=== PATIENT | male | born 1930 | race Caucasian/White ===

== ENCOUNTER 2016-12-20 20:39 | Observation (INO) ==
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
[2016-12-20 21:27] LABS: Basophils % 0.6 %; Eosinophils # 0.2 K/mcL (0.0-0.6); Eosinophils % 3.2 %; Hematocrit 27.6 % (37.5-50.1); Hemoglobin 9.3 g/dL (12.9-16.9); Immature Granulocytes % 1.7 % (0-4); Lymphocytes % 15.4 %; Mean Corpuscular HGB Conc 33.7 g/dL (31.6-35.5); Mean Corpuscular Hemoglobin 38.9 pg (28.0-33.3); Mean Corpuscular Volume 115.5 fL (83.0-100.0); Monocytes # 0.5 K/mcL (0.0-1.3); Monocytes % 7.5 %; Neutrophils # 4.7 K/mcL (1.6-8.9); Platelet Count 89 K/mcL (140-400); Red Blood Count 2.39 M/mcL (4.19-5.50); Red Cell Distribution Width 15.4 % (11.5-14.5); Segmented Neutrophils % 71.6 %
[2016-12-20 21:29] LABS: Macrocytosis Present (Not Present); Platelet Estimate Marked Decrease (Normal)
[2016-12-20 21:41] LABS: Alanine Aminotransferase 19 Units/L (0-55); Albumin 3.3 g/dL (3.5-5.0); Albumin/Globulin Ratio 0.8 (1.1-2.2); Alkaline Phosphatase 186 Units/L (38-126); Aspartate Amino Transferase 30 Units/L (5-34); BUN/Creatinine Ratio 11 (6-26); Bilirubin,Direct 0.2 mg/dL (0.0-0.5); Bilirubin,Indirect 0.3 mg/dL (0.0-1.2); Bilirubin,Total 0.5 mg/dL (0.2-1.2); Blood Urea Nitrogen 35 mg/dL (8-26); Carbon Dioxide 21 mEq/L (19-29); Chloride 105 mEq/L (98-109); Globulin 4.4 g/dL (2.4-3.5); Glucose 151 mg/dL (70-99); Osmolality,Calculated 293 (280-300); Potassium 4.3 mEq/L (3.5-4.5); Sodium 136 mEq/L (136-145); Total Protein 7.7 g/dL (6.0-8.3); eGFR For African Americans 23 (> 60); eGFR For Non-African Americans 19 (> 60)
[2016-12-20 21:42] LABS: Ethanol < 10 mg/dL (0-10)
[2016-12-20 21:50] LABS: Bilirubin,Urine Negative (Negative); Blood,Urine Small (Negative); Clarity,Urine Clear (Clear); Color,Urine Yellow (Yellow); Glucose,Urine (UA) Normal (Normal); Ketones,Urine Negative (Negative); Leukocyte Esterase,Urine Negative (Negative); Nitrite,Urine Negative (Negative); Protein,Urine >=300 mg/dL (Neg-Trace); Specific Gravity,Urine 1.012 (1.010-1.025); Urobilinogen,Urine Normal (Normal)
[2016-12-20 21:51] LABS: Bacteria,Urine Few per hpf (None-Few); Hyaline Casts,Urine None Seen per lpf (None-Few); Squamous Epithelial Cell,Urine Many per lpf (None-Few)
[2016-12-20 21:56] LABS: Amphetamine Screen,Urine Negative ng/mL (Cutoff=1000); Barbiturate Screen,Urine Negative ng/mL (Cutoff=200); Benzodiazepines Screen,Urine Negative ng/mL (Cutoff=200); Cannabinoid Screen,Urine Negative ng/mL (Cutoff = 50); Cocaine Screen,Urine Negative ng/mL (Cutoff= 300); Opiate Screen,Urine Negative ng/mL (Cutoff=300); Phencyclidine Screen,Urine Negative ng/mL (Cutoff=25)
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
[2016-12-20] MEDS ORDERED: Acetaminophen 325 MG TABLET PO PRN (23:55)
[2016-12-20] MEDS ORDERED: Dextrose Gel 15 GM PO PRN ×2 (23:55)
[2016-12-20] MEDS ORDERED: D5% in Water 1,000 ML IV PRN (23:55)
[2016-12-20] MEDS ORDERED: Naloxone 0.4 MG/ML INJ IVP PRN (23:55)
[2016-12-20] MEDS ORDERED: Ondansetron ODT 4 MG TAB.RAPDIS SL PRN (23:55)
[2016-12-20] MEDS ORDERED: *HR* Dextrose 50 % in Water (Syg) 50 ML SYRINGE IVP PRN (23:55)
[2016-12-21] MEDS: Albuterol 2.5 MG/3 ML NEBULIZER IH SCH ×3 (05:40→19:30)
[2016-12-21] MEDS: Insulin LISPRO 300 UNITS/3 ML VIAL SQ SCH ×3 (09:24→17:09)
[2016-12-21] MEDS: Aspirin 81 MG TAB.CHEW PO SCH (09:28)
[2016-12-21] MEDS: amLODIPine 5 MG TABLET PO SCH (09:28)
[2016-12-21] MEDS: Budesonide/Formoterol 160/4.5 MDI IH SCH ×2 (11:17→19:53)
--- NOTE | 2016-12-21 11:45 | Physician Discharge Referral ---
ExtendedCare Referral Info Transfer To: SNF Provider in Charge after Transfer: PCP Institutional Level of Care: Skilled - Diagnosis (1) Dementia Priority: Primary Status: Acute (2) CKD (chronic kidney disease), stage IV Priority: Secondary Status: Chronic (3) Non-insulin dependent type 2 diabetes mellitus Priority: Secondary Status: Chronic Prognosis: Fair Aware of Diagnosis: Family Aware of Prognosis: Family - Transfer Medications Home Medications: Amlodipine [Norvasc] 2.5 mg PO DAILY 08/20/15 [History] Aspirin Enteric Coated [Aspirin EC] 81 mg PO DAILY 08/20/15 [History] Atenolol [Tenormin] 50 mg PO DAILY 08/20/15 [History] Citalopram [CeleXA] 40 mg PO DAILY 08/20/15 [History] Levalbuterol Neb [Xopenex] 1 aerosol IH TID PRN 08/20/15 [History] Losartan [Cozaar] 50 mg PO DAILY 08/20/15 [History] Mirtazapine [Remeron] 15 mg PO HS 08/20/15 [History] Omeprazole [PriLOSEC] 20 mg PO DAILY 08/20/15 [History] Budesonide/Formoterol 160/4.5 [Symbicort] 2 puff IH BIDR #30 inhaler 08/25/15 [ Rx] Docusate Sodium [Colace] 100 mg PO BID PRN #20 capsule 08/25/15 [Rx] Albuterol Neb [Proventil Neb] 3 ml IH TID 04/06/16 [History] Albuterol Sulfate [Proair Hfa] 2 puff IH Q4H PRN 04/06/16 [History] Budesonide Neb [Pulmicort Neb] 2 ml IH DAILY 04/06/16 [History] Formoterol Fumarate [Perforomist] 2 ml IH BID 04/06/16 [History] Ipratropium [place] 1 spr NS Q6-8H PRN 04/06/16 [History] Oxygen 1 each .ROUTE AD 04/06/16 [History] Hydrocodone/Acetaminophen [[place] 5-325 Tablet] 1 tab PO Q6H PRN #10 tab [Rx] Allergies/Adverse Reactions: Allergies Penicillins Allergy (Verified 08/20/15 13:30) Swelling of Lip/Tongue/Throat - Respiratory Orders Smoking Cessation: Smoking cessation has been advised. For more information, call the [place] Tobacco Quit Line at 3-375-CWCP-NOW. CERTIFICATION: I certify that the transfer of the above named patient to an Extended Care Facility is necessary for the continuing treatment of the diagnosis listed. The above information is true and accurate reflection of patient's current condition. Confidential - Redisclosure prohibited without a patient's written consent.
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
--- NOTE | 2016-12-21 18:09 | Electrocardiograph Report ---
[place] [id number] Test Date: 2016-12-20 Pat Name: Milo Saul Department: 104 Room: 3B11 Gender: M Learning And Development Director: : 1930 Requested By: Tracy See Order Number: [id number] Reading MD: Lenora Hopper Measurements Intervals [place] Rate: 88 P: 51 SC: 250 QRS: -25 QRSD: 137 T: 29 QT: 372 QTc: 417 Interpretive Statements SINUS RHYTHM WITH FIRST DEGREE AV BLOCK BORDERLINE LEFT AXIS DEVIATION RIGHT BUNDLE BRANCH BLOCK Electronically Signed On 12-21-2016 18:07:47 EST by Lenora Hopper
[2016-12-21] MEDS ORDERED: Insulin LISPRO 300 UNITS/3 ML VIAL SQ SCH (21:00)
[2016-12-22] MEDS: Albuterol 2.5 MG/3 ML NEBULIZER IH SCH ×2 (01:01→07:53)
[2016-12-22] MEDS: Budesonide/Formoterol 160/4.5 MDI IH SCH (07:53)
[2016-12-22] MEDS: Insulin LISPRO 300 UNITS/3 ML VIAL SQ SCH (08:53)
--- NOTE | 2016-12-22 09:42 | Discharge Summary ---
Date of Encounter: 12/22/16 Time of Encounter: 09:10 - Discharge Diagnosis (1) Dementia Priority: Primary Status: Chronic Qualifiers: Dementia type: unspecified type Dementia behavioral disturbance: without behavioral disturbance Qualified Code(s): F03.90 - Unspecified dementia without behavioral disturbance (2) CKD (chronic kidney disease), stage IV Priority: Secondary Status: Chronic (3) Non-insulin dependent type 2 diabetes mellitus Priority: Secondary Status: Chronic - Discharge Medications Home Medications: Amlodipine [Norvasc] 2.5 mg PO DAILY 08/20/15 [History] Atenolol [Tenormin] 50 mg PO DAILY 08/20/15 [History] Citalopram [CeleXA] 40 mg PO DAILY 08/20/15 [History] Levalbuterol Neb [Xopenex] 1 aerosol IH TID PRN 08/20/15 [History] Losartan [Cozaar] 50 mg PO DAILY 08/20/15 [History] Mirtazapine [Remeron] 15 mg PO HS 08/20/15 [History] Omeprazole [PriLOSEC] 20 mg PO DAILY 08/20/15 [History] Budesonide/Formoterol 160/4.5 [Symbicort] 2 puff IH BIDR #30 inhaler 08/25/15 [ Rx] Docusate Sodium [Colace] 100 mg PO BID PRN #20 capsule 08/25/15 [Rx] Albuterol Neb [Proventil Neb] 3 ml IH TID 04/06/16 [History] Albuterol Sulfate [Proair Hfa] 2 puff IH Q4H PRN 04/06/16 [History] Budesonide Neb [Pulmicort Neb] 2 ml IH DAILY 04/06/16 [History] Formoterol Fumarate [Perforomist] 2 ml IH BID 04/06/16 [History] Ipratropium [place] 1 spr NS Q6-8H PRN 04/06/16 [History] Oxygen 1 each .ROUTE AD 04/06/16 [History] Hydrocodone/Acetaminophen [[place] 5-325 Tablet] 1 tab PO Q6H PRN #10 tab [Rx] Aspirin 81 mg PO DAILY 12/21/16 [History] Cholecalciferol (D-3) [Vitamin D] 5,000 unit PO DAILY 12/21/16 [History] Allergies/Adverse Reactions: Allergies Penicillins Allergy (Verified 08/20/15 13:30) Swelling of Lip/Tongue/Throat Date of admission: 12/20/16 22:46 Primary care physician: Alok Kumar MD Consults: 12/20/16 23:56 Consult to Test Conductor [CONS] Routine Reason for SW Consult: needs placement back to [place] Discharging clinician: Ángel Ballard Anticipated date of discharge: 12/22/16 - Patient Status Disposition: Transfer SNF Condition: Fair Functional capacity at discharge: independent ambulation Overall status at discharge: patient is back to baseline - Discharge Instructions Follow Up With: Alok Kumar MD [Primary Care Provider] - - Diet and Activity Activity: resume usual activities as tolerated Diet: diabetic diet, low salt diet Interval History: See below Hospital course: 86 Y/O M Placed on observation for management of severe dementia with risk of harm to self and others, patient found to be driving an unregistered car and without a license and a resident of [place] Patient also has PMH of HTN, CKD IV, COPD, DM He is seen at bedside, ambulatory, no distress Denies new complains at this time Preoccupied with going home and meeting his Alert, oriented to person and place, disoriented in time, other physical exam otherwise unremarkable Labs on exam reveal chronic anemia and renal function at baseline. Patient is stable to return to SNF for continued care - Time Spent with Patient Total time spent providing and/or coordinating discharge services: - Constitutional Vitals: Temp Pulse Resp BP Pulse Ox 97.4 F L 63 15 159/67 95 12/22/16 07:57 12/22/16 07:57 12/22/16 07:57 12/22/16 07:57 12/22/16 07:57 General appearance: Present: cooperative, A&O X 2 (unsure of year), pleasant, no acute distress, answers questions appropriately - Head Head exam: Present: atraumatic, normocephalic - Eye Eye exam: Present: PERRL, conjuntiva pink, sclera anicteric Pupils: Present: PERRL - Neck Neck exam general surgery: Present: supple, trachea midline. Absent: lymphadenopathy - Respiratory Respiratory exam: Present: CTAB. Absent: accessory muscle use, rales, rhonchi, wheezes - Cardiovascular Cardiovascular exam: Present: RRR, +S1, +S2. Absent: diastolic murmur, gallop, rubs, systolic murmur - GI/Abdominal GI/Abdominal exam: Present: normal bowel sounds, soft, no peritoneal signs. Absent: distended, tenderness - Extremities Exam Extremities exam: Present: warm, radial pulses palpable and symetrical. Absent : calf tenderness, cyanotic, pedal edema - Neurological Exam Neurological exam: Present: CN II-XII intact, oriented X3, no focal deficits. Absent: pronater drift, facial droop, speech deficit - Skin Skin exam: Present: dry, intact - VTE Reasons for not Prescribing Prophylaxis: Treatment not Indicated - Low risk for VTE
[2016-12-22] MEDS: amLODIPine 5 MG TABLET PO SCH (09:55)
[2016-12-22] MEDS: Aspirin 81 MG TAB.CHEW PO SCH (09:55)
[2016-12-22 11:03] VITALS: BP 144/62
== END 2016-12-22 12:56 ==
LOC: EMEROO 20:39 → 3BNU 20:39 → SUATTDRO 22:46 → 3BNU 23:17
PROVIDERS: ADMIT Family Medicine; ATTEND Internal Medicine

== ENCOUNTER 2017-01-03 19:24 | Inpatient (IN) ==
[2017-01-03] MEDS ORDERED: methylPREDNISolone 125 MG/2 ML VIAL IV ONE (19:44)
--- NOTE | 2017-01-03 19:45 | Emergency Department Note ---
Disposition Clinical Impression: Hospital-acquired pneumonia COPD (chronic obstructive pulmonary disease) Qualifiers: COPD type: chronic bronchitis Chronic bronchitis type: simple Qualified Code(s) : J41.0 - Simple chronic bronchitis Congestive heart failure Qualifiers: Congestive heart failure type: unspecified congestive heart failure type Congestive heart failure chronicity: unspecified congestive heart failure chronicity Qualified Code(s): I50.9 - Heart failure, unspecified Disposition: Admitted As Inpatient Referrals: NO,PCP [Non-Partnered Physician] - Forms: ED Satisfaction Letter SOB HPI - General Chief Complaint: ED Shortness of Breath/Dyspnea Stated Complaint: KAMALA Time Seen by Provider: 01/03/17 19:31 Source: patient, EMS Limitations: altered mental status (History of dementia) Nursing Notes Reviewed: Yes Vital Signs Reviewed: Yes - History of Present Illness Pt Subjective Complaint: shortness of breath Onset (ago): day(s) (1) Context: recent illness Severity: moderate Consistency/Duration: constant, gradually worsening Improves with: oxygen, bronchodilators Worsens with: exertion Known history of: COPD Associated symptoms: Reports: wheezing Treatment prior to arrival: oxygen, bronchodilator Cough present: Yes Cough Description: Involuntary Cough Frequency: Intermittent Sputum production: Yes Sputum Amount: Scant - Related Data Home Medications Medication Instructions Recorded Confirmed Atenolol [Tenormin] 50 mg PO DAILY 08/20/15 01/03/17 Citalopram [CeleXA] 20 mg PO DAILY 08/20/15 01/03/17 Losartan [Cozaar] 50 mg PO DAILY 08/20/15 01/03/17 Mirtazapine [Remeron] 15 mg PO HS 08/20/15 01/03/17 Omeprazole [PriLOSEC] 20 mg PO DAILY 08/20/15 01/03/17 Albuterol Neb [Proventil Neb] 3 ml IH Q6H PRN 04/06/16 01/03/17 Albuterol Sulfate [Proair Hfa] 2 puff IH Q4H PRN 04/06/16 01/03/17 Formoterol Fumarate [Perforomist] 2 ml IH BID 04/06/16 01/03/17 Oxygen 2 l NS AD 04/06/16 01/03/17 Amlodipine Besylate 2.5 mg PO DAILY 01/03/17 01/03/17 Aspirin Enteric Coated [Aspirin EC] 81 mg PO DAILY 01/03/17 01/03/17 Budesonide Neb [Pulmicort Neb] 1 mg IH DAILY 01/03/17 01/03/17 Docusate Sodium [Colace] 100 mg PO BID 01/03/17 01/03/17 Hydrocodone/Acetaminophen [[place] 1 tab PO Q6H PRN 01/03/17 01/03/17 5-325 Tablet] TraZODone 25 mg PO HS PRN 01/03/17 01/03/17 Allergies Allergy/AdvReac Type Severity Reaction Status Date / Time Penicillins Allergy Swelling Verified 08/20/15 13:30 of Lip/Tongue/Throat All systems ED: reviewed and negative except as stated. Constitutional: Denies: fever, chills Respiratory: Reports: cough, dyspnea, wheezes Past Medical History - Past Medical History Source: patient, old records reviewed, obtained from family (prison records), nursing notes reviewed Medical history: Reports: arthritis, cancer, COPD, CVA, diabetes, GERD, hyperlipidemia, hypertension, renal disease, other Surgical history: Reports: cancer surgery, carotid endarterectomy, cataract, cholecystectomy, knee replacement, prostatectomy, other Psychiatric history: Reports: depression - Social History Smoking Status: Current every day smoker Smokeless Tobacco Status: No Alcohol use: Reports: none Drug use: Reports: none Physical Exam - General Limitations: altered mental status (Dementia) General appearance: alert, other (Patient is to Mild respiratory distress) - Eye Eye exam: Present: normal appearance, PERRL, EOMI - ENT ENT exam: normal exam, normal oropharynx, mucous membranes moist - Neck Neck exam: Present: normal inspection, full ROM, trachea midline - Chest Chest inspection: Present: normal inspection, symmetric chest wall rise - Respiratory Respiratory exam: Present: respiratory distress, wheezes (Diffuse scattered), accessory muscle use, prolonged expiratory phase - Cardiovascular Cardiovascular exam: Present: tachycardia, normal heart sounds - Abdominal Exam Abdominal exam: Present: soft, Non-Tender. Absent: tenderness, distention, guarding, rebound, rigidity Course - Reevaluation(s) Reevaluation #1: Patient reports marked improvement of symptoms Time: 22:15 Vital Signs Temperature 98.1 F 01/03/17 19:26 Pulse Rate 96 01/03/17 19:26 Respiratory Rate 38 01/03/17 19:26 Blood Pressure 169/75 01/03/17 19:26 O2 Sat by Pulse Oximetry 99 01/03/17 19:26 Temperature 99.1 F 01/03/17 19:39 Pulse Rate 91 01/03/17 20:37 Respiratory Rate 26 01/03/17 20:37 Blood Pressure 140/64 01/03/17 20:37 O2 Sat by Pulse Oximetry 93 L 01/03/17 20:37 Oxygen Delivery Oxygen Delivery Nasal Cannula Shortness of Breath/Dyspnea - Lab Data Result diagrams: 01/03/17 19:56 01/03/17 19:56 Lab Results 01/03/17 01/03/17 01/03/17 Range/Units 19:56 19:56 19:56 WBC 17.2 H (4.3-11.1) K/mcL RBC 2.13 L (4.19-5.50) M/mcL Hgb 8.5 L (12.9-16.9) g/dL Hct 25.7 L (37.5-50.1) % MCV 120.7 H (83.0-100.0) fL MCH 39.9 H (28.0-33.3) pg MCHC 33.1 (31.6-35.5) g/dL RDW 16.0 H (11.5-14.5) % Plt Count 92 L (140-400) K/mcL MPV 13.0 H (9.4-12.4) fL Seg Neutrophils % 80.0 % Lymphocytes % 10.0 % Monocytes % 10.0 % Neutrophils # 13.8 H (1.6-8.9) K/mcL Lymphocytes # 1.7 (0.6-4.6) K/mcL Monocytes # 1.7 H (0.0-1.3) K/mcL Nucleated RBCs/100 WBC 0.1 H (0) /100 WBC Platelet Estimate Decreased L (Normal) Large Platelets Present A (Not Present) Immature Plt Fraction 19.6 H (1.1-6.1) % Macrocytosis Present A (Not Present) PT 12.7 H (9.4-12.1) Seconds INR 1.2 APTT 30.7 (26.0-36.0) Seconds ABG pH (7.32-7.45) pH Units ABG pCO2 (35-45) mmHg ABG pO2 (85-104) mmHg ABG HCO3 (21-27) mEQ/L ABG Total CO2 (20-26) mEq/L ABG O2 Saturation (95-98) % ABG Base Excess (-2.0 to 3.0) mEq/L Blood Gas Modality Inspired O2 % Sodium (136-145) mEq/L Potassium (3.5-4.5) mEq/L Chloride (98-109) mEq/L Carbon Dioxide (19-29) mEq/L BUN (8-26) mg/dL Creatinine (0.72-1.25) mg/dL Est GFR ( Amer) (> 60) Est GFR (Non-Af Amer) (> 60) BUN/Creatinine Ratio (6-26) Glucose (70-99) mg/dL Calculated Osmolality (280-300) Lactic Acid (0.5-2.2) mmol/L Calcium (8.6-10.8) mg/dL Phosphorus (2.3-4.7) mg/dL Magnesium (1.6-2.6) mg/dL Total Bilirubin (0.2-1.2) mg/dL Direct Bilirubin (0.0-0.5) mg/dL Indirect Bilirubin (0.0-1.2) mg/dL AST (5-34) Units/L ALT (0-55) Units/L Alkaline Phosphatase (38-126) Units/L Troponin I (0-0.03) ng/mL B-Natriuretic Peptide 2687 H (0-100) pg/mL Serum Total Protein (6.0-8.3) g/dL Albumin (3.5-5.0) g/dL Globulin (2.4-3.5) g/dL Albumin/Globulin Ratio (1.1-2.2) 01/03/17 01/03/17 01/03/17 Range/Units 19:56 19:56 19:56 WBC (4.3-11.1) K/mcL RBC (4.19-5.50) M/mcL Hgb (12.9-16.9) g/dL Hct (37.5-50.1) % MCV (83.0-100.0) fL MCH (28.0-33.3) pg MCHC (31.6-35.5) g/dL RDW (11.5-14.5) % Plt Count (140-400) K/mcL MPV (9.4-12.4) fL Seg Neutrophils % % Lymphocytes % % Monocytes % % Neutrophils # (1.6-8.9) K/mcL Lymphocytes # (0.6-4.6) K/mcL Monocytes # (0.0-1.3) K/mcL Nucleated RBCs/100 WBC (0) /100 WBC Platelet Estimate (Normal) Large Platelets (Not Present) Immature Plt Fraction (1.1-6.1) % Macrocytosis (Not Present) PT (9.4-12.1) Seconds INR APTT (26.0-36.0) Seconds ABG pH (7.32-7.45) pH Units ABG pCO2 (35-45) mmHg ABG pO2 (85-104) mmHg ABG HCO3 (21-27) mEQ/L ABG Total CO2 (20-26) mEq/L ABG O2 Saturation (95-98) % ABG Base Excess (-2.0 to 3.0) mEq/L Blood Gas Modality Inspired O2 % Sodium 137 (136-145) mEq/L Potassium 5.0 H (3.5-4.5) mEq/L Chloride 107 (98-109) mEq/L Carbon Dioxide 20 (19-29) mEq/L BUN 49 H (8-26) mg/dL Creatinine 3.77 H (0.72-1.25) mg/dL Est GFR ( Amer) 19 L (> 60) Est GFR (Non-Af Amer) 15 L (> 60) BUN/Creatinine Ratio 13 (6-26) Glucose 185 H (70-99) mg/dL Calculated Osmolality 302 H (280-300) Lactic Acid 1.0 (0.5-2.2) mmol/L Calcium 8.7 (8.6-10.8) mg/dL Phosphorus 4.8 H (2.3-4.7) mg/dL Magnesium 2.0 (1.6-2.6) mg/dL Total Bilirubin 0.7 (0.2-1.2) mg/dL Direct Bilirubin 0.4 (0.0-0.5) mg/dL Indirect Bilirubin 0.3 (0.0-1.2) mg/dL AST 43 H (5-34) Units/L ALT 38 (0-55) Units/L Alkaline Phosphatase 206 H (38-126) Units/L Troponin I 0.16 H* (0-0.03) ng/mL B-Natriuretic Peptide (0-100) pg/mL Serum Total Protein 7.7 (6.0-8.3) g/dL Albumin 2.7 L (3.5-5.0) g/dL Globulin 5.0 H (2.4-3.5) g/dL Albumin/Globulin Ratio 0.5 L (1.1-2.2) 01/03/17 Range/Units 21:38 WBC (4.3-11.1) K/mcL RBC (4.19-5.50) M/mcL Hgb (12.9-16.9) g/dL Hct (37.5-50.1) % MCV (83.0-100.0) fL MCH (28.0-33.3) pg MCHC (31.6-35.5) g/dL RDW (11.5-14.5) % Plt Count (140-400) K/mcL MPV (9.4-12.4) fL Seg Neutrophils % % Lymphocytes % % Monocytes % % Neutrophils # (1.6-8.9) K/mcL Lymphocytes # (0.6-4.6) K/mcL Monocytes # (0.0-1.3) K/mcL Nucleated RBCs/100 WBC (0) /100 WBC Platelet Estimate (Normal) Large Platelets (Not Present) Immature Plt Fraction (1.1-6.1) % Macrocytosis (Not Present) PT (9.4-12.1) Seconds INR APTT (26.0-36.0) Seconds ABG pH 7.36 (7.32-7.45) pH Units ABG pCO2 39 (35-45) mmHg ABG pO2 63 L (85-104) mmHg ABG HCO3 22.0 (21-27) mEQ/L ABG Total CO2 23.2 (20-26) mEq/L ABG O2 Saturation 91 L (95-98) % ABG Base Excess -3.2 L (-2.0 to 3.0) mEq/L Blood Gas Modality [place] Inspired O2 44 % Sodium (136-145) mEq/L Potassium (3.5-4.5) mEq/L Chloride (98-109) mEq/L Carbon Dioxide (19-29) mEq/L BUN (8-26) mg/dL Creatinine (0.72-1.25) mg/dL Est GFR ( Amer) (> 60) Est GFR (Non-Af Amer) (> 60) BUN/Creatinine Ratio (6-26) Glucose (70-99) mg/dL Calculated Osmolality (280-300) Lactic Acid (0.5-2.2) mmol/L Calcium (8.6-10.8) mg/dL Phosphorus (2.3-4.7) mg/dL Magnesium (1.6-2.6) mg/dL Total Bilirubin (0.2-1.2) mg/dL Direct Bilirubin (0.0-0.5) mg/dL Indirect Bilirubin (0.0-1.2) mg/dL AST (5-34) Units/L ALT (0-55) Units/L Alkaline Phosphatase (38-126) Units/L Troponin I (0-0.03) ng/mL B-Natriuretic Peptide (0-100) pg/mL Serum Total Protein (6.0-8.3) g/dL Albumin (3.5-5.0) g/dL Globulin (2.4-3.5) g/dL Albumin/Globulin Ratio (1.1-2.2)
[2017-01-03 20:05] LABS: Hemoglobin 8.5 g/dL (12.9-16.9)
[2017-01-03 20:07] LABS: Hematocrit 25.7 % (37.5-50.1); Immature Platelets 19.6 % (1.1-6.1); Mean Corpuscular HGB Conc 33.1 g/dL (31.6-35.5); Mean Corpuscular Hemoglobin 39.9 pg (28.0-33.3); Mean Corpuscular Volume 120.7 fL (83.0-100.0); Nucleated Red Blood Cells 0.1 /100 WBC (0); Red Blood Count 2.13 M/mcL (4.19-5.50)
[2017-01-03 20:12] LABS: Platelet Count 92 K/mcL (140-400)
[2017-01-03 20:14] LABS: Activated Partial Thrombo Time 30.7 Seconds (26.0-36.0)
[2017-01-03 20:20] LABS: Albumin 2.7 g/dL (3.5-5.0); Albumin/Globulin Ratio 0.5 (1.1-2.2); Bilirubin,Direct 0.4 mg/dL (0.0-0.5); Bilirubin,Indirect 0.3 mg/dL (0.0-1.2); Bilirubin,Total 0.7 mg/dL (0.2-1.2); Calcium 8.7 mg/dL (8.6-10.8); Phosphorous 4.8 mg/dL (2.3-4.7); Total Protein 7.7 g/dL (6.0-8.3)
[2017-01-03 20:23] LABS: Lymphocytes # 1.7 K/mcL (0.6-4.6); Monocytes # 1.7 K/mcL (0.0-1.3); Neutrophils # 13.8 K/mcL (1.6-8.9)
[2017-01-03 20:24] LABS: Large Platelets Present (Not Present); Macrocytosis Present (Not Present); Platelet Estimate Decreased (Normal)
[2017-01-03 20:37] LABS: INR 1.2; Prothrombin Time 12.7 Seconds (9.4-12.1)
[2017-01-03] MEDS ORDERED: 0.9 % Sodium Chloride 1,000 ML IVC ONE (21:02)
[2017-01-03] MEDS ORDERED: Aspirin 81 MG TAB.CHEW PO STA (21:03)
[2017-01-03] MEDS ORDERED: Piperacillin/Tazobactam 3.375 GM in D5% in Water (Mini-Bag+) 100 ML IVPB STA (21:03)
[2017-01-03 21:44] LABS: ABG Base Excess -3.2 mEq/L (-2.0 to 3.0); ABG Oxygen Saturation 91 % (95-98); ABG PCO2 39 mmHg (35-45); ABG PH 7.36 pH Units (7.32-7.45); ABG PO2 63 mmHg (85-104); ABG TCO2 23.2 mEq/L (20-26); Blood Gas FiO2 44 %
[2017-01-03] MEDS ORDERED: Acetaminophen 325 MG TABLET PO PRN (22:24)
[2017-01-03] MEDS ORDERED: Naloxone 0.4 MG/ML INJ IVP PRN (22:24)
[2017-01-03] MEDS ORDERED: Levofloxacin 750 MG/150 ML 750 MG/150 ML BAG IVPB ONE (23:39)
[2017-01-03] MEDS ORDERED: traZODone 50 MG TABLET PO PRN (23:40)
[2017-01-03] MEDS ORDERED: *HR* HYDROcodone/Acet 5/325 mg TABLET PO PRN (23:40)
[2017-01-03] MEDS ORDERED: Ipratropium/Albuterol Neb 3 ML IH PRN (23:43)
[2017-01-03] MEDS ORDERED: Vancomycin 1,000 MG in D5% in Water 250 ML IVPB SCH (23:45)
[2017-01-03] MEDS ORDERED: 0.9 % Sodium Chloride 1,000 ML IVC SCH (23:45)
--- NOTE | 2017-01-03 23:48 | Internal Med History&Physical ---
Date of Encounter: 01/03/17 Time of Encounter: 23:15 Assessment and Plan (1) Pneumonia Current visit: Yes Status: Suspected Admitting patient. IV antibiotics. Patient was in the hospital for at least 2 nights. [facility] resident. High risk for complications. Broad-spectrum antibiotics. Qualifiers: Pneumonia type: due to methicillin-resistant Staphylococcus aureus (MRSA) Laterality: right Lung location: upper lobe of lung Qualified Code(s): J15.212 - Pneumonia due to Methicillin resistant Staphylococcus aureus (2) Hospital-acquired pneumonia Current visit: Yes Status: Acute (3) COPD (chronic obstructive pulmonary disease) Current visit: Yes Status: Acute Will treat with IV antibiotics, O2 supplementation along with bronchodilator nebs Qualifiers: COPD type: chronic bronchitis Chronic bronchitis type: simple Qualified Code(s): J41.0 - Simple chronic bronchitis (4) [id number] kidney injury Current visit: Yes Status: Acute Gentle hydration. Follow urine output. Will dose medications renally. (5) CKD (chronic kidney disease), stage IV Current visit: Yes Status: Chronic (6) Dementia Current visit: No Status: Chronic At risk for delirium. Qualifiers: Dementia type: unspecified type Dementia behavioral disturbance: without behavioral disturbance Qualified Code(s): F03.90 - Unspecified dementia without behavioral disturbance (7) Diabetes Current visit: Yes Status: Chronic Sliding-scale insulin. Monitor blood sugars closely. Qualifiers: Diabetes mellitus type: type 2 Diabetes mellitus complication status: with kidney complications Diabetes mellitus complication detail: with chronic kidney disease Diabetes mellitus assisted insulin use: without assisted use Chronic kidney disease stage: stage 4 (severe) Qualified Code(s): E11.22 - Type 2 diabetes mellitus with diabetic chronic kidney disease; N18.4 - Chronic kidney disease, stage 4 (severe) (8) Acute on chronic respiratory failure with hypoxia Current visit: Yes Status: Acute Due to pneumonia and COPD. Continue O2 supplementation and the FiO2 as tolerated. Internal Medicine - H&P: HPI Chief complaint: Shortness of breath and hypoxia Admitted From: Emergency Dept Plans for Post Hospital Care: Transfer Halfway Facility History of present illness: Mr. Saul is a 86 year old male with history of COPD, diabetes, CVA, hypertension and hyperlipidemia presented to the ER from [facility] with shortness of breath and hypoxia that began today. Patient is on chronic home oxygen at 2 L/m. He resides at a [facility] and appears to be having underlying dementia. He is not able to provide much history. History has been obtained through review of ED records. Here, the patient was having severe wheezing and was hypoxic. He was recently given bronchodilator and nebulizer treatments and IV steroids with improvement in his symptoms. He presently denies any chest pain. He feels better now and does not report any cough or sputum production. ED records report that he does have intermittent cough with scant sputum production. No palpitations. Past Med Surg Social Fam HX - Past Medical History Medical history: arthritis, cancer, COPD, CVA, diabetes, GERD, hyperlipidemia, hypertension, renal disease, other Psychiatric history: depression - Past Surgical History Surgical History: cancer surgery, carotid endarterectomy, cataract, cholecystectomy, knee replacement, prostatectomy, other - Social History Smoking Status: Current every day smoker Smokeless Tobacco Status: No Alcohol use: none Drug use: none - Family History Father Hx Family Cardiac Disorders: No Hx Family Cancer: Yes (lung/ prostate) Mother Hx Family Cardiac Disorders: Yes Internal Medicine - H&P: Meds Atenolol [Tenormin] 50 mg PO DAILY 08/20/15 [History] Citalopram [CeleXA] 20 mg PO DAILY 08/20/15 [History] Losartan [Cozaar] 50 mg PO DAILY 08/20/15 [History] Mirtazapine [Remeron] 15 mg PO HS 08/20/15 [History] Omeprazole [PriLOSEC] 20 mg PO DAILY 08/20/15 [History] Albuterol Neb [Proventil Neb] 3 ml IH Q6H PRN 04/06/16 [History] Albuterol Sulfate [Proair Hfa] 2 puff IH Q4H PRN 04/06/16 [History] Formoterol Fumarate [Perforomist] 2 ml IH BID 04/06/16 [History] Oxygen 2 l NS AD 04/06/16 [History] Amlodipine Besylate 2.5 mg PO DAILY 01/03/17 [History] Aspirin Enteric Coated [Aspirin EC] 81 mg PO DAILY 01/03/17 [History] Budesonide Neb [Pulmicort Neb] 1 mg IH DAILY 01/03/17 [History] Docusate Sodium [Colace] 100 mg PO BID 01/03/17 [History] Hydrocodone/Acetaminophen [[place] 5-325 Tablet] 1 tab PO Q6H PRN 01/03/17 [ History] TraZODone 25 mg PO HS PRN 01/03/17 [History] Allergies Penicillins Allergy (Verified 08/20/15 13:30) Swelling of Lip/Tongue/Throat All Systems PM: A 10-system review of systems was performed and is negative for pertinent findings except as documented above in the HPI. Review of systems: Obtained from patient but unreliable due to underlying history of dementia. - Constitutional Constitutional: malaise, no chills, no fever(s), no night sweats - EENT Eyes: no change in vision, no discharge, no pain, no photophobia Ears: no ear discharge, no ear pain, no tinnitus Nose, mouth and throat: no dysphagia, no nasal discharge, no neck pain, no sore throat - Cardiovascular Cardiovascular ROS IM: no chest pain, no diaphoresis, no dyspnea, no lightheadedness, no palpitations, no syncope - Respiratory Respiratory: cough, dyspnea, wheezing, no excessive phlegm production - Gastrointestinal Gastrointestinal: no abdominal pain, no diarrhea, no hematemesis, no hematochezia, no melena, no nausea, no vomiting - Musculoskeletal Musculoskeletal ROS IM: no numbness, no tingling - Integumentary Integumentary IM: no rash, no unusual bruising - Neurological Neurological ROS: no confusion, no convulsions, no focal weakness, no numbness, no tingling, no tremor(s) - Hematologic/Lymphatic Hematologic/Lymphatic: no easy bruising - Constitutional Vitals: Temp Pulse Resp BP Pulse Ox 97.9 F 73 16 138/62 95 01/03/17 23:09 01/03/17 23:09 01/03/17 23:09 01/03/17 23:09 01/03/17 23:09 General appearance: Present: cooperative, A&O X 1, mild distress, answers questions appropriately - Head Head exam: Present: atraumatic, normocephalic - Eye Eye exam: Present: EOMI, PERRL, conjuntiva pink, sclera anicteric - ENT ENT exam: Present: mucous membranes dry - Neck Neck exam general surgery: Present: supple, trachea midline. Absent: lymphadenopathy - Respiratory Respiratory exam: Present: prolonged expiratory phase, wheezes. Absent: accessory muscle use, rales, rhonchi Additional comments: Coarse breath sounds at bases bilaterally - Cardiovascular Cardiovascular exam: Present: RRR, +S1, +S2. Absent: diastolic murmur, gallop, rubs, systolic murmur - GI/Abdominal GI/Abdominal exam: Present: normal bowel sounds, soft, no peritoneal signs. Absent: distended, tenderness - Extremities Exam Extremities exam: Present: warm, radial pulses palpable and symetrical. Absent : calf tenderness, cyanotic, pedal edema - Neurological Exam Neurological exam: Present: alert, no focal deficits. Absent: facial droop, speech deficit - Skin Skin exam: Present: dry, intact Internal Med - H&P Results - Labs CBC & Chem 7: 01/03/17 19:56 01/03/17 19:56 - Impressions Impressions Chest X-Ray 01/03/17 21:05 IMPRESSION: Findings as above likely related to edema or infection. D/ / Kitty Valentin MD / Kitty Valentin MD Interpreting Provider: Kitty Valentin MD - Attending Attestation This document has been at least partially created by [employer] recognition technology by Dr. Robison. Errors in grammar, wording or other phrases may exist. If errors are found after the documentation is signed, they will be addressed individually in the addendum section of this document when appropriate.
[2017-01-04 00:05] LABS: Bilirubin,Urine Negative (Negative); Blood,Urine Trace (Negative); Clarity,Urine Cloudy (Clear); Color,Urine Yellow (Yellow); Glucose,Urine (UA) Normal (Normal); Ketones,Urine Negative (Negative); Leukocyte Esterase,Urine Negative (Negative); Nitrite,Urine Negative (Negative); Protein,Urine >=300 mg/dL (Neg-Trace); Urobilinogen,Urine Normal (Normal)
[2017-01-04 00:23] LABS: Amorphous Sediment,Urine Few (Few); RBC,Urine 0-3 per hpf (0-3); Squamous Epithelial Cell,Urine Few per lpf (None-Few); WBC,Urine 0-3 per hpf (0-3)
[2017-01-04 00:24] LABS: Bacteria,Urine Few per hpf (None-Few)
[2017-01-04] MEDS: Ipratropium/Albuterol Neb 3 ML IH SCH ×6 (01:05→20:37)
[2017-01-04] MEDS: Cefepime HCl 2,000 MG in D5% in Water (Mini-Bag+) 100 ML IVPB SCH ×2 (01:23→09:49)
[2017-01-04] MEDS: methylPREDNISolone 125 MG/2 ML VIAL IVP SCH ×3 (01:24→17:49)
[2017-01-04] MEDS: Nicotine 21 MG PATCH.TD24 TD SCH ×2 (01:25→09:50)
[2017-01-04] MEDS ORDERED: Vancomycin 1,500 MG in D5% in Water 250 ML IVPB ONE (02:00)
[2017-01-04 07:04] LABS: Red Blood Count 1.76 M/mcL (4.19-5.50); Red Cell Distribution Width 15.8 % (11.5-14.5)
[2017-01-04 07:06] LABS: Basophils % 0.2 %; Lymphocytes # 0.3 K/mcL (0.6-4.6); Lymphocytes % 4.6 %; Mean Corpuscular HGB Conc 33.3 g/dL (31.6-35.5); Mean Corpuscular Hemoglobin 39.8 pg (28.0-33.3); Mean Corpuscular Volume 119.3 fL (83.0-100.0); Mean Platelet Volume 13.7 fL (9.4-12.4); Monocytes # 0.1 K/mcL (0.0-1.3); Monocytes % 1.6 %; Segmented Neutrophils % 89.6 %
[2017-01-04 07:35] LABS: Neutrophils # 5.6 K/mcL (1.6-8.9); Platelet Count 64 K/mcL (140-400)
[2017-01-04 07:38] LABS: Macrocytosis Present (Not Present); Platelet Estimate Decreased (Normal)
[2017-01-04] MEDS: Budesonide Neb 0.5 MG/2 ML IH SCH (07:46)
[2017-01-04] MEDS ORDERED: amLODIPine 5 MG TABLET PO SCH ×2 (09:00→14:44)
[2017-01-04] MEDS ORDERED: Aspirin Enteric Coated 81 MG Tablet PO SCH (09:00)
[2017-01-04] MEDS: FORMOTEROL FUMARATE IH SCH ×2 (09:51→22:03)
[2017-01-04] MEDS ORDERED: *HR* Dextrose 50 % in Water (Syg) 50 ML SYRINGE IVP PRN (13:03)
[2017-01-04] MEDS ORDERED: D5% in Water 1,000 ML IV PRN (13:03)
[2017-01-04] MEDS ORDERED: Dextrose Gel 15 GM PO PRN ×2 (13:03)
--- NOTE | 2017-01-04 13:38 | Cardiology Consult Note ---
Date of Encounter: 01/04/17 Time of Encounter: 13:45 Assessment and Plan (1) Acute on chronic respiratory failure with hypoxia Current Visit: Yes Status: Acute Per Cardiology: Being treated for pneumonia and COPD. Management per primary service. On steroids and antibiotics. (2) Dementia Current Visit: No Status: Chronic Per Cardiology: History dementia. 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 No family present at bedside. Qualifiers: Dementia type: unspecified type Dementia behavioral disturbance: without behavioral disturbance Qualified Code(s): F03.90 - Unspecified dementia without behavioral disturbance (3) CKD (chronic kidney disease), stage IV Current Visit: Yes Status: Chronic Per Cardiology: Has apparent history of CKD stage IV, current kidney function appears worse than baseline. We'll discontinue ARB. Will increase Norvasc for BP optimization. Consider nephrology consult if deemed appropriate. (4) Elevated troponin Current Visit: Yes Status: Acute Per Cardiology: Patient denies any chest pain. ECG with ST depressions. Non-STEMI versus demand ischemia. Cardiac rehabilitation consult not appropriate at this time. Troponins 0.16 and 0.32 in setting of apparent MIMI on CKD stage IV, COPD, pneumonia, and severe anemia. Echo currently pending per primary service. Previous echo January 2012 showed EF preserved at 60%, mild AR, mild MR, mild TR. Upon review of records no known history of CAD. We'll discontinue aspirin for now due to severe anemia and thrombocytopenia. On beta blayne. Again, stopping ARB due to worsening kidney function. Appears to be full code, consider palliative care consult to address code status. (5) Anemia Current Visit: Yes Status: Acute Per Cardiology: H&H currently 7 and 21. Patient denies any active bleeding, however poor historian. Occult stool negative. Recommend GI evaluation. Again holding aspirin for now. Qualifiers: Anemia type: unspecified type Qualified Code(s): D64.9 - Anemia, unspecified (6) Elevated brain natriuretic peptide (BNP) level Current Visit: Yes Status: Acute Per Cardiology: Euvolemic on exam. BNP in 2600's. MIMI on CKD IV. Stict I&O, daily weights, 1500ml fluid restriction. Discussion w patient/family: Thank you for involving us in the care of your patient. Please call with any questions. History of Present Illness Consult date: 01/04/17 Requesting physician: Lennox Maldonado Consult reason: Troponin Elevation, SOB Chief complaint: "I don't know. I had SOB and here I am." History of present illness: Mr. Saul is a 86 year old male with a relevant past medical history of hypertension, hyperlipidemia, CVA, DM type II, GERD, COPD, history of prostate cancer status post radical prostatectomy, peripheral artery disease with left CEA, history of tuberculosis, dementia. Cardiology consult today for troponin elevation. No recent cardiology records available. Patient seen today with no family currently present at bedside. Patient is alert to person and knew he was in [place], however was unsure of the year and does not know why he is here today. When asked why he came to the hospital he indicated "I do not know". He reports "I was short of breath and here I am". He denies any chest pain or palpitations. Reports short of breath improved currently. When asked if he's had a recent falls he reports "not lately". Of note has security ankle bracelet from [facility]. Additionally, patient reports he lives home with his , however upon discussion with nursing staff he is from a [facility]. Past Med Surg Social Fam HX - Past Medical History Attestation: Yes The following information was validated with the patient. Source: patient, old records reviewed, nursing notes reviewed Medical history: arthritis, cancer, COPD, CVA, diabetes, GERD, hyperlipidemia, hypertension, renal disease, other Psychiatric history: depression - Past Surgical History Surgical History: cancer surgery, carotid endarterectomy, cataract, cholecystectomy, knee replacement, prostatectomy, other - Social History Smoking Status: Current every day smoker Smokeless Tobacco Status: No Alcohol use: none Drug use: none - Family History Father Hx Family Cardiac Disorders: No Hx Family Cancer: Yes (lung/ prostate) Mother Hx Family Cardiac Disorders: Yes Medications and Allergies Atenolol [Tenormin] 50 mg PO DAILY 08/20/15 [History] Citalopram [CeleXA] 20 mg PO DAILY 08/20/15 [History] Losartan [Cozaar] 50 mg PO DAILY 08/20/15 [History] Mirtazapine [Remeron] 15 mg PO HS 08/20/15 [History] Omeprazole [PriLOSEC] 20 mg PO DAILY 08/20/15 [History] Albuterol Neb [Proventil Neb] 3 ml IH Q6H PRN 04/06/16 [History] Albuterol Sulfate [Proair Hfa] 2 puff IH Q4H PRN 04/06/16 [History] Formoterol Fumarate [Perforomist] 2 ml IH BID 04/06/16 [History] Oxygen 2 l NS AD 04/06/16 [History] Amlodipine Besylate 2.5 mg PO DAILY 01/03/17 [History] Aspirin Enteric Coated [Aspirin EC] 81 mg PO DAILY 01/03/17 [History] Budesonide Neb [Pulmicort Neb] 1 mg IH DAILY 01/03/17 [History] Docusate Sodium [Colace] 100 mg PO BID 01/03/17 [History] Hydrocodone/Acetaminophen [[place] 5-325 Tablet] 1 tab PO Q6H PRN 01/03/17 [ History] TraZODone 25 mg PO HS PRN 01/03/17 [History] Allergies Penicillins Allergy (Verified 08/20/15 13:30) Swelling of Lip/Tongue/Throat ROS unobtainable: other (Patient with history of dementia and history somewhat challenging to obtain, no family present at bedside) All Systems Review: A 10-system review of systems was performed and is negative for pertinent findings except as documented above in the HPI. - Cardiovascular Cardiovascular: as per HPI, dyspnea on exertion Physical Examination Vital Signs, Last 4 Hours Temp Pulse Resp BP Pulse Ox 01/04/17 11:18 98.3 F 63 18 135/60 95 General: Conversant, No Apparent Distress HEENT: Atraumatic, Normocephaly Cardiac: Reg Rate and Rhythm, Normal S1 and S2, No Murmur Lungs: Normal Breath Sounds, Other (decreased to bases) Neuro: Alert and responsive, Other (Alert to person, cooperative and follows simple verbal commands, +DICKINSON 4) Skin: No rashes noted on visualized skin Extremities: No Edema Results 01/04/17 06:39 01/04/17 06:39 Lab Results Laboratory Tests 10/07/16 10/07/16 12/20/16 09:18 09:18 21:21 Hgb 9.3 L 9.3 L Hct 27.5 L 27.6 L Plt Count INR Creatinine 3.05 H AST ALT Troponin I B-Natriuretic Peptide Stool Occult Blood 12/20/16 01/03/17 01/03/17 21:21 19:56 19:56 Hgb 8.5 L Hct 25.7 L Plt Count 92 L INR Creatinine 3.13 H AST ALT Troponin I B-Natriuretic Peptide 2687 H Stool Occult Blood 01/03/17 01/03/17 01/03/17 19:56 19:56 19:56 Hgb Hct Plt Count INR 1.2 Creatinine 3.77 H AST 43 H ALT 38 Troponin I 0.16 H* B-Natriuretic Peptide Stool Occult Blood 01/04/17 01/04/17 01/04/17 06:39 06:39 09:18 Hgb 7.0 L D Hct 21.0 L Plt Count 64 L INR Creatinine 3.40 H AST ALT Troponin I 0.32 H* B-Natriuretic Peptide Stool Occult Blood 01/04/17 10:18 Hgb Hct Plt Count INR Creatinine AST ALT Troponin I B-Natriuretic Peptide Stool Occult Blood Negative ITS Impressions Chest X-Ray 01/03/17 21:05 IMPRESSION: Findings as above likely related to edema or infection. D/ / Kitty Valentin MD / Kitty Valentin MD Interpreting Provider: Kitty Valentin MD Intake & Output 01/01/17 01/02/17 01/03/17 01/04/17 23:59 23:59 23:59 23:59 Intake Total 700 / 700 Output Total 380 / 380 Balance 320 / 320 Weight 72.5 kg 72.5 kg Active Medications Acetaminophen (Tylenol) 650 mg PO Q6HR PRN PRN Reason: Mild Pain (1-3) Stop: 07/05/17 22:25 Acetaminophen/Hydrocodone Bitart ([place] 5-325 Mg) 1 tab PO Q6H PRN PRN Reason: moderate to severe pain Stop: 07/05/17 23:41 Albuterol/Ipratropium (Duoneb) 3 ml IH [id number] [facility] PRN Reason: Protocol Stop: 07/06/17 00:01 Last Admin: 01/04/17 11:00 Dose: 3 ml Amlodipine Besylate (Norvasc) 2.5 mg PO DAILY [facility] Stop: 07/06/17 09:01 Last Admin: 01/04/17 09:50 Dose: 2.5 mg Aspirin (Aspirin Ec) 81 mg PO DAILY [facility] Stop: 07/06/17 09:01 Last Admin: 01/04/17 09:50 Dose: 81 mg Atenolol (Tenormin) 50 mg PO DAILY [facility] Stop: 07/06/17 09:01 Last Admin: 01/04/17 09:50 Dose: 50 mg Budesonide (Pulmicort Neb) 1 mg IH DAILY [facility] Stop: 07/06/17 09:01 Last Admin: 01/04/17 07:46 Dose: 1 mg Citalopram Hydrobromide (Celexa) 20 mg PO DAILY [facility] Stop: 07/06/17 09:01 Last Admin: 01/04/17 09:51 Dose: 20 mg Dextrose/Water (Dextrose 50% (Syg)) 25 ml IVP AD PRN PRN Reason: Hypoglycemia Stop: 07/06/17 13:04 Docusate Sodium (Colace) 100 mg PO BID [facility] PRN Reason: Protocol Stop: 07/06/17 09:01 Last Admin: 01/04/17 09:51 Dose: 100 mg Glucagon (Glucagen) 1 mg IM ONCE PRN PRN Reason: Hypoglycemia Stop: 07/06/17 13:04 Glucose (Gluctose) 15 gm PO ONCE PRN PRN Reason: Hypoglycemia Stop: 07/06/17 13:04 Glucose (Gluctose) 30 gm PO ONCE PRN PRN Reason: Hypoglycemia Stop: 07/06/17 13:04 Cefepime HCl 2,000 mg/ (Dextrose) 100 mls @ 200 mls/hr IVPB DAILY [facility] Stop: 07/05/17 23:46 Last Admin: 01/04/17 09:49 Dose: 200 mls/hr Sodium Chloride (0.9 % Sodium Chloride) 1,000 mls @ 75 mls/hr IVC .[id number] [facility] Stop: 07/05/17 23:46 Last Admin: 01/04/17 01:23 Dose: 75 mls/hr Dextrose (Dextrose 5%) 1,000 mls @ 100 mls/hr IV CONT PRN PRN Reason: HYPOGLYCEMIA Stop: 07/06/17 13:04 Insulin Human Lispro (Humalog) 0 units SQ TIDAC [facility] PRN Reason: Protocol Stop: 07/06/17 13:16 Insulin Human Lispro (Humalog) 0 units SQ HS [facility] PRN Reason: Protocol Stop: 07/06/17 21:01 Losartan Potassium (Cozaar) 50 mg PO DAILY [facility] PRN Reason: Protocol Stop: 07/06/17 09:01 Last Admin: 01/04/17 09:51 Dose: 50 mg Methylprednisolone (Solu-Medrol) 80 mg IVP Q8HR [facility] Stop: 07/06/17 00:01 Last Admin: 01/04/17 09:48 Dose: 80 mg Mirtazapine (Remeron) 15 mg PO HS [facility] Stop: 07/06/17 21:01 Naloxone HCl (Narcan) 0.4 mg IVP Q2MIN PRN PRN Reason: Opioid Reversal Stop: 07/05/17 22:25 Nicotine (Nicoderm) 21 mg TD DAILY [facility] PRN Reason: Protocol Stop: 07/06/17 00:46 Last Admin: 01/04/17 09:50 Dose: 21 mg Omeprazole (Prilosec) 20 mg PO DAILY [facility] PRN Reason: Protocol Stop: 07/06/17 09:01 Last Admin: 01/04/17 09:50 Dose: 20 mg Pharmacy Profile Note (Patient Taking Own Medication) 0 each IH BID [facility] Stop: 07/06/17 09:01 Last Admin: 01/04/17 09:51 Dose: Not Given Trazodone HCl (Trazodone) 25 mg PO HS PRN PRN Reason: Insomnia Stop: 07/05/17 23:41 Vancomycin HCl (Vancocin) 0 each IVPB RPHPROT PRN PRN Reason: PULSE DOSE Stop: 07/06/17 01:36 - Imaging and Cardiology Chest Xray: report reviewed Echo: pending - EKG Interpretation EKG results cardiology: personally reviewed (SR in 60's with RBBB and ST depression in V3-V6) Consult Discharge Plan - Plan Referrals: Alok Kumar MD [Primary Care Provider] -
--- NOTE | 2017-01-04 14:05 | Electrocardiograph Report ---
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
[2017-01-04] MEDS ORDERED: Vancomycin 500 MG in D5% in Water (Mini-Bag+) 100 ML IVPB ONE (16:03)
[2017-01-04] MEDS ORDERED: Furosemide 20 MG/2 ML VIAL IVP ONE (17:07)
[2017-01-04 17:40] LABS: Iron 94 mcg/dL (65-175); Transferrin 145 mg/dL (174-364)
[2017-01-04 17:41] LABS: % Iron Saturation 46 % (20-55)
[2017-01-04] MEDS: Insulin LISPRO 300 UNITS/3 ML VIAL SQ SCH ×3 (17:45→22:03)
[2017-01-04 18:02] LABS: Ferritin 1206 ng/ml (22-275)
[2017-01-04 18:14] LABS: Folate 12.4 ng/mL (7.0-31.4)
--- NOTE | 2017-01-04 19:46 | Internal Med Progress Note ---
Date of Encounter: 01/04/17 Time of Encounter: 09:00 - Assessment and plan (1) Acute on chronic respiratory failure with hypoxia Current Visit: Yes Status: Acute Assessment and plan: Treatment patient as pneumonia with antibiotics. Patient has history of CHF, will repeat echo. (2) Qnpmq-nr-towylss kidney injury Current Visit: Yes Status: Acute Assessment and plan: Patient has a history of CKD, we will closely monitor renal function. Hold ARB. May need nephrology consult if renal function is getting worse (3) Anemia Current Visit: Yes Status: Acute Assessment and plan: Etiology is undetermined, no signs of active bleeding, guaiac test negative. Anemia workup ordered. We will give transfusion. GI consult. Qualifiers: Anemia type: unspecified type Qualified Code(s): D64.9 - Anemia, unspecified (4) COPD (chronic obstructive pulmonary disease) Current Visit: Yes Status: Acute Assessment and plan: Patient was placed on antibiotics, steroids, and bronchodilator. Qualifiers: COPD type: chronic bronchitis Chronic bronchitis type: simple Qualified Code(s): J41.0 - Simple chronic bronchitis (5) Congestive heart failure Current Visit: Yes Status: Acute Assessment and plan: Elevated BNP, will repeat echo. On fluid restriction. Careful diuretics because of poor renal function Qualifiers: Congestive heart failure type: unspecified congestive heart failure type Congestive heart failure chronicity: chronic Qualified Code(s): I50.9 - Heart failure, unspecified (6) Elevated troponin Current Visit: Yes Status: Acute Assessment and plan: Denies chest pain. Consider demand ischemia. No further cardiac workup per cardiology. (7) Diabetes Current Visit: Yes Status: Chronic Assessment and plan: On sliding scale Qualifiers: Diabetes mellitus type: type 2 Diabetes mellitus complication status: with kidney complications Diabetes mellitus complication detail: with chronic kidney disease Diabetes mellitus snf insulin use: without snf use Chronic kidney disease stage: stage 4 (severe) Qualified Code(s): E11.22 - Type 2 diabetes mellitus with diabetic chronic kidney disease; N18.4 - Chronic kidney disease, stage 4 (severe) (8) Pneumonia Current Visit: Yes Status: Suspected Assessment and plan: Patient was treated at the healthcare associated pneumonia. Continue antibiotics. Qualifiers: Pneumonia type: due to methicillin-resistant Staphylococcus aureus (MRSA) Laterality: right Lung location: upper lobe of lung Qualified Code(s): J15.212 - Pneumonia due to Methicillin resistant Staphylococcus aureus (9) CKD (chronic kidney disease) Current Visit: No Status: Chronic Assessment and plan: Closely monitor renal function. Qualifiers: Chronic kidney disease stage: stage 3 (moderate) Qualified Code(s): N18.3 - Chronic kidney disease, stage 3 (moderate) (10) DVT prophylaxis Current Visit: Yes Status: Acute Assessment and plan: EPCD. No anticoagulation because of low H&H and low platelet level - Time Spent With Patient 25 - 35 minutes - Subjective Interval history: Patient is a 86-year-old male admitted for shortness of breath. He was treated as healthcare associated pneumonia. Past medical history is significant for COPD, CK-MB, dementia, diabetes, CVA. Patient was seen and examined. His SOB has improved after treatment. However patient has significant hemoglobin drop, etiology is undetermined. Guaiac test negative. Will place on anemia workup and given 2 units PRBCs. GI consult. Patient has elevated BNP and shortness of breath, will give Lasix at a low dose between 2 units of blood, careful diuretic and monitor renal function. - Constitutional Vitals: Temp Pulse Resp BP Pulse Ox 98.3 F 76 16 142/76 99 01/04/17 11:18 01/04/17 15:53 01/04/17 15:53 01/04/17 15:53 01/04/17 15:53 General appearance: Present: cooperative, A&O X 1, mild distress, answers questions appropriately - Head Head exam: Present: atraumatic, normocephalic - Eye Eye exam: Present: PERRL, conjuntiva pink, sclera anicteric Pupils: Present: PERRL - Neck Neck exam general surgery: Present: supple, trachea midline. Absent: lymphadenopathy - Respiratory Respiratory exam: Present: CTAB. Absent: accessory muscle use, rales, rhonchi, wheezes - Cardiovascular Cardiovascular exam: Present: RRR, +S1, +S2. Absent: diastolic murmur, gallop, rubs, systolic murmur - GI/Abdominal GI/Abdominal exam: Present: normal bowel sounds, soft, no peritoneal signs. Absent: distended, tenderness - Extremities Exam Extremities exam: Present: warm, radial pulses palpable and symetrical. Absent : calf tenderness, cyanotic, pedal edema - Neurological Exam Neurological exam: Present: CN II-XII intact, oriented X3, no focal deficits. Absent: pronater drift, facial droop, speech deficit - Skin Skin exam: Present: dry, intact Internal Medicine: Result - Labs CBC & Chem 7: 01/04/17 06:39 01/04/17 06:39 Labs: Short CBC 01/04/17 Range/Units 06:39 WBC 6.3 D (4.3-11.1) K/mcL Hgb 7.0 L D (12.9-16.9) g/dL Hct 21.0 L (37.5-50.1) % Plt Count 64 L (140-400) K/mcL Neutrophils # 5.6 (1.6-8.9) K/mcL BMP 01/04/17 06:39 Sodium 137 Potassium 5.0 H Chloride 110 H Carbon Dioxide 19 BUN 50 H Creatinine 3.40 H Glucose 182 H Calcium 8.0 L Cardiac Enzymes 01/04/17 Range/Units 09:18 Troponin I 0.32 H* (0-0.03) ng/mL Urine 01/03/17 Range/Units 23:40 Urine Color Yellow (Yellow) Urine Clarity Cloudy A (Clear) Urine pH 6.0 (5.0-8.0) pH Units Ur Specific [place] 1.020 (1.010-1.025) Urine Protein >=300 H (Neg-Trace) mg/dL Urine Glucose (UA) Normal (Normal) mg/dL - ABG Interpretation ABG results: ABG ABG pH 7.36 pH Units (7.32-7.45) 01/03/17 21:38 ABG pCO2 39 mmHg (35-45) 01/03/17 21:38 ABG pO2 63 mmHg (85-104) L 01/03/17 21:38 ABG O2 Saturation 91 % (95-98) L 01/03/17 21:38 PT/INR, D-dimer PT 12.7 Seconds (9.4-12.1) H 01/03/17 19:56 Consult Discharge Plan - Plan Referrals: Alok Kumar MD [Primary Care Provider] -
[2017-01-04] MEDS: Mirtazapine 15 MG TABLET PO SCH (22:02)
[2017-01-04] MEDS ORDERED: 0.9 % Sodium Chloride 250 ML ONE (22:02)
[2017-01-05] MEDS: methylPREDNISolone 125 MG/2 ML VIAL IVP SCH ×3 (01:01→17:04)
[2017-01-05] MEDS: Ipratropium/Albuterol Neb 3 ML IH SCH ×7 (03:40→23:31)
[2017-01-05 05:47] LABS: Calcium 8.4 mg/dL (8.6-10.8); Potassium 4.9 mEq/L (3.5-4.5)
[2017-01-05 05:53] LABS: Basophils % 0.2 %; Hematocrit 27.1 % (37.5-50.1); Immature Platelets 18.8 % (1.1-6.1); Lymphocytes # 0.3 K/mcL (0.6-4.6); Lymphocytes % 2.8 %; Mean Corpuscular HGB Conc 33.2 g/dL (31.6-35.5); Mean Corpuscular Hemoglobin 36.3 pg (28.0-33.3); Mean Corpuscular Volume 109.3 fL (83.0-100.0); Mean Platelet Volume 13.6 fL (9.4-12.4); Monocytes # 0.3 K/mcL (0.0-1.3); Monocytes % 2.5 %; Nucleated Red Blood Cells 0.2 /100 WBC (0); Red Blood Count 2.48 M/mcL (4.19-5.50); Red Cell Distribution Width 20.7 % (11.5-14.5); Segmented Neutrophils % 91.5 %
[2017-01-05 05:54] LABS: Neutrophils # 10.4 K/mcL (1.6-8.9); Platelet Count 71 K/mcL (140-400)
[2017-01-05] MEDS: Budesonide Neb 0.5 MG/2 ML IH SCH (07:36)
[2017-01-05] MEDS ORDERED: Vancomycin 1,500 MG in D5% in Water 250 ML IVPB ONE (07:49)
[2017-01-05] MEDS: Cefepime HCl 2,000 MG in D5% in Water (Mini-Bag+) 100 ML IVPB SCH (07:57)
[2017-01-05] MEDS: Nicotine 21 MG PATCH.TD24 TD SCH (07:58)
[2017-01-05] MEDS: Insulin LISPRO 300 UNITS/3 ML VIAL SQ SCH ×4 (08:09→21:49)
[2017-01-05] MEDS: FORMOTEROL FUMARATE IH SCH ×2 (08:10→21:49)
[2017-01-05] MEDS ORDERED: Aminoglycoside Consult 1 EACH MC ONE (08:30)
--- NOTE | 2017-01-05 08:32 | Cardiology Progress Note ---
Date of Encounter: 01/05/17 Time of Encounter: 08:30 Assessment and Plan (1) Acute on chronic respiratory failure with hypoxia Current Visit: Yes Status: Acute Per Cardiology: Being treated for pneumonia and COPD. Management per primary service. On steroids and antibiotics. (2) Dementia Current Visit: No Status: Chronic Per Cardiology: History dementia. 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 No family present at bedside. Qualifiers: Dementia type: unspecified type Dementia behavioral disturbance: without behavioral disturbance Qualified Code(s): F03.90 - Unspecified dementia without behavioral disturbance (3) CKD (chronic kidney disease), stage IV Current Visit: Yes Status: Chronic Per Cardiology: Has apparent history of CKD stage IV, current kidney function appears worse than baseline. Now off ARB. Consider nephrology consult if deemed appropriate. (4) Elevated troponin Current Visit: Yes Status: Acute Per Cardiology: Patient denies any chest pain. ECG with ST depressions. Non-STEMI versus demand ischemia. Troponins 0.16 and 0.32 in setting of apparent MIMI on CKD stage IV, COPD, pneumonia, and severe anemia. Previous echo January 2012 showed EF preserved at 60%, mild AR, mild MR, mild TR. Upon review of records no known history of CAD. Off aspirin for now due to severe anemia and thrombocytopenia. On beta blayne. Again, stopping ARB due to worsening kidney function. Appears to be full code, consider palliative care consult to address code status. Echo currently pending per primary service. (5) Anemia Current Visit: Yes Status: Acute Per Cardiology: H&H currently 7 and 21. Patient denies any active bleeding, however poor historian. Occult stool negative. Recommend GI evaluation. Again holding aspirin for now. S/p transfusion 2 units, improved. Qualifiers: Anemia type: unspecified type Qualified Code(s): D64.9 - Anemia, unspecified (6) Elevated brain natriuretic peptide (BNP) level Current Visit: Yes Status: Acute Per Cardiology: Euvolemic on exam. BNP in 2600's. MIMI on CKD IV. Stict I&O, daily weights, 1500ml fluid restriction. (7) HTN (hypertension) Current Visit: Yes Status: Acute Per Cardiology: SBP 170's. Off ARB now. Will increase Norvasc to 10mg PO daily and Atenolol to 75mg PO daily, continue to titrate meds for BP optimization. Qualifiers: Hypertension type: essential hypertension Qualified Code(s): I10 - Essential (primary) hypertension Discussion w patient/family: Thank you for involving us in the care of your patient. Please call with any questions. Subjective Principal diagnosis: SOB, Pneumonia, Elevated Trop Interval history: Patient alert to person and place, however thought it was 2019. He denies any chest pain, shortness of breath, or palpitations. Anxious to "go home". He denies any awareness to active bleeding. No family present at bedside. Objective Vital Signs, Last 4 Hours Temp Pulse Resp BP Pulse Ox 01/05/17 07:28 97.6 F 77 16 177/89 93 L General: Conversant HEENT: Atraumatic Cardiac: Reg Rate and Rhythm, Normal S1 and S2 Lungs: Other (Expiratory wheezes noted throughout) Neuro: Alert and responsive, Other (Alert and oriented 2, pleasant and cooperative, +MAE4) Extremities: No Edema Results 01/05/17 05:38 01/05/17 04:54 Lab Results Laboratory Tests 01/05/17 05:38 Hgb 9.0 L D Hct 27.1 L Active Medications Acetaminophen (Tylenol) 650 mg PO Q6HR PRN PRN Reason: Mild Pain (1-3) Stop: 07/05/17 22:25 Acetaminophen/Hydrocodone Bitart ([place] 5-325 Mg) 1 tab PO Q6H PRN PRN Reason: moderate to severe pain Stop: 07/05/17 23:41 Albuterol/Ipratropium (Duoneb) 3 ml IH [id number] [facility] PRN Reason: Protocol Stop: 07/06/17 00:01 Last Admin: 01/05/17 07:34 Dose: 3 ml Amlodipine Besylate (Norvasc) 5 mg PO DAILY [facility] Stop: 07/07/17 09:01 Last Admin: 01/05/17 07:58 Dose: 5 mg Atenolol (Tenormin) 50 mg PO DAILY [facility] Stop: 07/06/17 09:01 Last Admin: 01/05/17 07:58 Dose: 50 mg Budesonide (Pulmicort Neb) 1 mg IH DAILY [facility] Stop: 07/06/17 09:01 Last Admin: 01/05/17 07:36 Dose: 1 mg Citalopram Hydrobromide (Celexa) 20 mg PO DAILY [facility] Stop: 07/06/17 09:01 Last Admin: 01/05/17 07:58 Dose: 20 mg Dextrose/Water (Dextrose 50% (Syg)) 25 ml IVP AD PRN PRN Reason: Hypoglycemia Stop: 07/06/17 13:04 Docusate Sodium (Colace) 100 mg PO BID [facility] PRN Reason: Protocol Stop: 07/06/17 09:01 Last Admin: 01/05/17 07:58 Dose: 100 mg Glucagon (Glucagen) 1 mg IM ONCE PRN PRN Reason: Hypoglycemia Stop: 07/06/17 13:04 Glucose (Gluctose) 15 gm PO ONCE PRN PRN Reason: Hypoglycemia Stop: 07/06/17 13:04 Glucose (Gluctose) 30 gm PO ONCE PRN PRN Reason: Hypoglycemia Stop: 07/06/17 13:04 Cefepime HCl 2,000 mg/ (Dextrose) 100 mls @ 200 mls/hr IVPB DAILY [facility] Stop: 07/05/17 23:46 Last Admin: 01/05/17 07:57 Dose: 200 mls/hr Dextrose (Dextrose 5%) 1,000 mls @ 100 mls/hr IV CONT PRN PRN Reason: HYPOGLYCEMIA Stop: 07/06/17 13:04 Vancomycin HCl 1,500 mg/ (Dextrose) 250 mls @ 166.67 mls/hr IVPB ONCE ONE Stop: 01/05/17 09:18 Insulin Human Lispro (Humalog) 0 units SQ TIDAC [facility] PRN Reason: Protocol Stop: 07/06/17 13:16 Last Admin: 01/05/17 08:09 Dose: 2 units Insulin Human Lispro (Humalog) 0 units SQ HS [facility] PRN Reason: Protocol Stop: 07/06/17 21:01 Last Admin: 01/04/17 22:03 Dose: Not Given Methylprednisolone (Solu-Medrol) 80 mg IVP Q12HR [facility] Stop: 07/07/17 18:01 Mirtazapine (Remeron) 15 mg PO HS [facility] Stop: 07/06/17 21:01 Last Admin: 01/04/17 22:02 Dose: 15 mg Naloxone HCl (Narcan) 0.4 mg IVP Q2MIN PRN PRN Reason: Opioid Reversal Stop: 07/05/17 22:25 Nicotine (Nicoderm) 21 mg TD DAILY [facility] PRN Reason: Protocol Stop: 07/06/17 00:46 Last Admin: 01/05/17 07:58 Dose: Not Given Omeprazole (Prilosec) 20 mg PO DAILY [facility] PRN Reason: Protocol Stop: 07/06/17 09:01 Last Admin: 01/05/17 07:58 Dose: 20 mg Pharmacy Profile Note (Patient Taking Own Medication) 0 each IH BID [facility] Stop: 07/06/17 09:01 Last Admin: 01/05/17 08:10 Dose: Not Given Trazodone HCl (Trazodone) 25 mg PO HS PRN PRN Reason: Insomnia Stop: 07/05/17 23:41 Vancomycin HCl (Vancocin) 0 each IVPB RPHPROT PRN PRN Reason: PULSE DOSE Stop: 07/06/17 01:36 - Imaging and Cardiology Echo: pending - EKG Interpretation EKG results cardiology: other (24 hr tele shows avg HR 73, SR, no events noted) Consult Discharge Plan - Plan Referrals: Alok Kumar MD [Primary Care Provider] -
[2017-01-05] MEDS ORDERED: amLODIPine 5 MG TABLET PO SCH ×2 (09:00)
[2017-01-05 10:55] LABS: INR 1.2; Prothrombin Time 12.8 Seconds (9.4-12.1)
[2017-01-05 10:58] LABS: Albumin 2.6 g/dL (3.5-5.0); Albumin/Globulin Ratio 0.5 (1.1-2.2); Bilirubin,Direct 0.3 mg/dL (0.0-0.5); Bilirubin,Indirect 0.2 mg/dL (0.0-1.2); Bilirubin,Total 0.5 mg/dL (0.2-1.2); Globulin 4.8 g/dL (2.4-3.5); Total Protein 7.4 g/dL (6.0-8.3)
[2017-01-05 11:19] LABS: Hepatitis A Antibody IgM Nonreactive (Nonreactive); Hepatitis B Surface Antigen Nonreactive (Nonreactive); Hepatitis C Virus Antibody Nonreactive (Nonreactive)
--- NOTE | 2017-01-05 11:45 | Gastroenterology Consult Note ---
<Carlos Burnett Katie - Last Filed: 01/05/17 11:43> Date of Encounter: 01/05/17 Time of Encounter: 10:20 - Assessment and plan (1) Anemia Current Visit: Yes Status: Acute Assessment and plan: hgb 8.5 on admission, dropped to 7 on 01/04. Hgb this AM 9 after 2 units PRBC. FOBT negative. Continue to monitor CBC and transfuse PRBC as needed. Plan for EGD and colonoscopy tomorrow. Clear liquid diet today, no red or purple. NPO at midnight. If unable tolerate NuLytely please use MiraLAX prep. If not clear by 6 AM, give 2 tap water enemas. Pt alert and oriented x3 this AM during my exam, he understood procedures, asked appropriate questions, and was willing to sign consent. Qualifiers: Anemia type: unspecified type Qualified Code(s): D64.9 - Anemia, unspecified (2) Thrombocytopenia Current Visit: Yes Status: Acute Assessment and plan: pt with thrombocytopenia dating back to December 2014. Plts 148 on 10/17/2013. Will complete liver workup including labs and US to r/o cirrhosis. (3) [id number]-[id number] kidney injury Current Visit: Yes Status: Acute Assessment and plan: Management per primary team. (4) Elevated ferritin Current Visit: Yes Status: Acute Assessment and plan: Ferritin 1206, check hemochromatosis panel. - Time Spent With Patient Total time spent is greater than 50% in coordination of care (as documented) at patient's floor/unit and/or counseling patient: GI History of Present Illness - Data of Consult Patient: new to practice Consult date: 01/05/17 Requesting Physician: Lennox Maldonado MD - Consult Narrative Reason for consult: anemia History of present illness: Mr. Saul is a 86 year old male with PMHx of COPD, DM, CVA, GERD, HLD, HTN, CKD , prostate cancer s/p radical prostatectomy and dementia who presented to the ED from [facility] with SOB and hypoxia that started the day of admission. He is on supplemental oxygen. Pt is chronically anemic, with baseline 9-10. He presented with Hgb 8.5 and dropped to 7 on 01/04/17. This AM Hgb 9 after 2 units PRBC. He denies melena or hematochezia. FOBT was negative. He is also chronically thrombocytopenic dating back to December 2014. He denies ETOH use. Procedures: None NSAIDs: ASA Anticoagulaiton: None Past Med Surg Social Fam HX - Past Medical History Medical history: arthritis, cancer, COPD, CVA, diabetes, GERD, hyperlipidemia, hypertension, renal disease, other Psychiatric history: depression - Past Surgical History Surgical History: cancer surgery, carotid endarterectomy, cataract, cholecystectomy, knee replacement, prostatectomy, other - Social History Smoking Status: Current every day smoker Smokeless Tobacco Status: No Alcohol use: none Drug use: none - Family History Father Hx Family Cardiac Disorders: No Hx Family Cancer: Yes (lung/ prostate) Mother Hx Family Cardiac Disorders: Yes - Gastrointestinal Gastrointestinal: Present: as per HPI - Constitutional Constitutional: as per HPI - EENT Eyes: as per HPI Ears: Present: as per HPI Nose, mouth and throat: Present: as per HPI - Cardiovascular Cardiovascular ROS: Present: as per HPI - Respiratory Respiratory IM: Present: as per HPI - Genitourinary Genitourinary: Absent: change in color, Urinary frequency - Neurological ROS Neurological GI: Present: as per HPI - Hematologic/Lymphatic Hematologic/Lymphatic pediatric: Present: as per HPI - Musculoskeletal Musculoskeletal ROS GI: Present: as per HPI - Integumentary Integumentary GI: Present: as per HPI - Psychiatric ROS Psychiatric GI: Present: as per HPI - Endocrine Endocrine IM: Present: as per HPI - Constitutional Vitals: Temp Pulse Resp BP Pulse Ox 97.6 F 77 16 177/89 93 L 01/05/17 07:28 01/05/17 07:28 01/05/17 07:28 01/05/17 07:28 01/05/17 07:28 General appearance: Present: cooperative, A&O X 3, pleasant, no acute distress, answers questions appropriately - Head Head exam: Present: atraumatic, normocephalic - Eye Eye exam: Present: normal appearance, sclera anicteric - ENT ENT exam: Present: mucous membranes moist - Neck Neck exam general surgery: Present: normal inspection, trachea midline - Respiratory Respiratory exam: Present: CTAB. Absent: rales, rhonchi - Cardiovascular Cardiovascular exam: Present: RRR, +S1, +S2 - GI/Abdominal GI/Abdominal exam: Present: normal bowel sounds, soft, no peritoneal signs. Absent: distended, firm, guarding, tenderness - Rectal Rectal exam: Present: deferred - Extremities Exam Extremities exam: Present: warm - Neurological Exam Neurological exam: Present: no focal deficits - Psychiatric Psychiatric exam: Present: normal affect, normal mood - Skin Skin exam: Present: dry, intact, normal color, warm Results - Labs CBC & Chem 7: 01/05/17 05:38 01/05/17 04:54 Labs: Last Result Calcium 8.4 mg/dL (8.6-10.8) L 01/05/17 04:54 Iron 94 mcg/dL (65-175) 01/04/17 17:16 % Saturation 46 % (20-55) 01/04/17 17:16 Transferrin 145 mg/dL (174-364) L 01/04/17 17:16 Ferritin 1206 ng/ml (22-275) H 01/04/17 17:16 Troponin I 0.32 ng/mL (0-0.03) H* 01/04/17 09:18 Vitamin B12 505 pg/mL (213-816) 01/04/17 17:16 Folate 12.4 ng/mL (7.0-31.4) 01/04/17 17:16 Stool Occult Blood Negative (Negative) 01/04/17 10:18 Entire Visit Hgb 9.0 g/dL (12.9-16.9) L D 01/05/17 05:38 Hct 27.1 % (37.5-50.1) L 01/05/17 05:38 PT 12.8 Seconds (9.4-12.1) H 01/05/17 10:12 Ferritin 1206 ng/ml (22-275) H 01/04/17 17:16 Total Bilirubin 0.5 mg/dL (0.2-1.2) 01/05/17 10:12 AST 32 Units/L (5-34) 01/05/17 10:12 ALT 36 Units/L (0-55) 01/05/17 10:12 Folate 12.4 ng/mL (7.0-31.4) 01/04/17 17:16 - ABG ABG results: ABG ABG pH 7.36 pH Units (7.32-7.45) 01/03/17 21:38 ABG pCO2 39 mmHg (35-45) 01/03/17 21:38 ABG pO2 63 mmHg (85-104) L 01/03/17 21:38 ABG O2 Saturation 91 % (95-98) L 01/03/17 21:38 PT/INR, D-dimer PT 12.8 Seconds (9.4-12.1) H 01/05/17 10:12 Consult Discharge Plan - Plan Referrals: Alok Kumar MD [Primary Care Provider] - Carter Reyes CNP [Advanced Practice Nurse] - 01/19/17 8:00 am <Althea Mccloud - Last Filed: 01/05/17 15:57> Time of Encounter: 14:30 - Time Spent With Patient Total time spent is greater than 50% in coordination of care (as documented) at patient's floor/unit and/or counseling patient: GI History of Present Illness - Data of Consult Requesting Physician: Lennox Maldonado MD - Consult Narrative History of present illness: Mr. Saul is a 86 year old male - Constitutional Vitals: Temp Pulse Resp BP Pulse Ox 97.6 F 77 18 177/89 94 L 01/05/17 07:28 01/05/17 07:28 01/05/17 11:44 01/05/17 07:28 01/05/17 11:44 Results - Labs CBC & Chem 7: 01/05/17 05:38 01/05/17 04:54 Labs: Last Result Calcium 8.4 mg/dL (8.6-10.8) L 01/05/17 04:54 Iron 94 mcg/dL (65-175) 01/04/17 17:16 % Saturation 46 % (20-55) 01/04/17 17:16 Transferrin 145 mg/dL (174-364) L 01/04/17 17:16 Ferritin 1206 ng/ml (22-275) H 01/04/17 17:16 Troponin I 0.32 ng/mL (0-0.03) H* 01/04/17 09:18 Vitamin B12 505 pg/mL (213-816) 01/04/17 17:16 Folate 12.4 ng/mL (7.0-31.4) 01/04/17 17:16 Stool Occult Blood Negative (Negative) 01/04/17 10:18 Entire Visit Hgb 9.0 g/dL (12.9-16.9) L D 01/05/17 05:38 Hct 27.1 % (37.5-50.1) L 01/05/17 05:38 PT 12.8 Seconds (9.4-12.1) H 01/05/17 10:12 Ferritin 1206 ng/ml (22-275) H 01/04/17 17:16 Total Bilirubin 0.5 mg/dL (0.2-1.2) 01/05/17 10:12 AST 32 Units/L (5-34) 01/05/17 10:12 ALT 36 Units/L (0-55) 01/05/17 10:12 Folate 12.4 ng/mL (7.0-31.4) 01/04/17 17:16 - ABG ABG results: ABG ABG pH 7.36 pH Units (7.32-7.45) 01/03/17 21:38 ABG pCO2 39 mmHg (35-45) 01/03/17 21:38 ABG pO2 63 mmHg (85-104) L 01/03/17 21:38 ABG O2 Saturation 91 % (95-98) L 01/03/17 21:38 PT/INR, D-dimer PT 12.8 Seconds (9.4-12.1) H 01/05/17 10:12 - Attending Attestation I examined this patient and my medical decision-making was reviewed with the DEVOPS ENGINEER/PA/Advanced Practice Nurse/Resident Physician. I agree with the documented findings, disposition and treatment plan as described except to the extent set forth below.
--- NOTE | 2017-01-05 12:33 | ECHO - Doppler Report ---
Echocardiogram Name: Milo Saul Date of Study: 01/05/2017 Date: 1930 Ht: 69.0 in Medical Record#: [id number] Age: 86 Wt: 164.0 lb Gender: Male BSA: 1.9 Order #: [id number] Location: [facility] Room #: [id number] Reading Physician: Mckenzie Cleaning DO Director Heart: Estela Moss RVT, [facility] Ordering Physician: Lennox Maldonado MD Primary Physician: Alok Kumar MD Indications: Shortness of breath Impressions: LVEF 65%. Normal left ventricular size and systolic function. There is evidence of moderate diastolic dysfunction of the left ventricle. Normal right ventricular size and function. Moderate aortic regurgitation. Moderate to severe calcification of the aortic valve with moderate to severely reduced leaflet excursion. Discrepant aortic valve area (0.85cm2) and MG (15mmHg). Consider SHAYNA if clinically appropriate. Moderate mitral regurgitation. Moderate tricuspid regurgitation. Mild-moderate pulmonic regurgitation. Estimated RVSP was 58 mmHg. Moderate to severe pulmonary hypertension. Left Ventricular Wall Motion: Rest Echo Findings All wall segments showed normal motion. Findings: Study Quality * Technically adequate exam. ECG Findings * Normal sinus rhythm. Left Ventricle * LVEF 60%. * Normal LV chamber size, wall thickness and function. * Moderate left ventricular diastolic dysfunction. * Mild concentric left ventricular hypertrophy. Left Atrium * Normal left atrial size. Mitral Valve * No mitral stenosis. * Mildly calcified and thickened mitral valve leaflets. * Moderate mitral regurgitation. Aortic Valve * Moderate to severely calcified aortic valve leaflets. * Moderate aortic regurgitation. * Discrepant SUHAIL/DI (0.85cm2/0.27) and MG/PV (15mmHg/2.6cm/s). Tricuspid Valve * Tricuspid valve not well visualized. * At least moderate tricuspid regurgitation. * Estimated RA pressure is 3 mmHg. * Estimated RVSP is 58 mmHg. * Moderate to severe pulmonary hypertension. Pulmonic Valve * Pulmonic valve is not well visualized. * No pulmonic stenosis. * Mild-moderate pulmonic regurgitation. Pulmonary Artery * Pulmonary artery not well visualized. Right Ventricle * Normal right ventricular structure and function. Right Atrium * Normal right atrial size. Interatrial Septum * No evidence of PFO by color Doppler. Pericardium * There is no pericardial effusion present. IVC * The IVC is not dilated. History Hypertension Diabetes Hypercholesteremia Family History of CAD 08-24-2015 a Previous Echo was performed. Measurements: BP: 177/ 89 2D Normal Values IVSd: 1.40 cm 0.6 - 1.0 cm LVIDd: 4.90 cm 3.7 - 5.6 cm LVPWd: 1.40 cm 0.6 - 1.1 cm LVIDs: 4.10 cm 1.5 - 3.6 cm AO: 2.50 cm < 4.0 cm LA: 4.00 cm 2.0 - 4.0cm %FS: 16.30 cm >25 % LVOT Diam: 2.00 cm LA volume: 62 Mitral Valve Dec Time:158.00 msec Peak E:1.39 m/sec Peak A:.82 m/sec E/A Ratio:1.7 Peak E' Lat Vasile:6.24 cm/s Peak E' Med Vasile:4.58 cm/s E/E' Lat Ratio:22.3 E/E' Med Ratio:30.3 LVOT Peak Vasile:.80 m/sec Mean Vasile:.54 m/sec Peak Grad:3.00 mmHg Mean Grad:1.00 mmHg Aortic Valve Peak Vasile:2.60 m/sec Mean Vasile:1.85 m/sec Peak Grad:27.00 mmHg Mean Grad:15.00 mmHg Valve Area:1.07 cm2 AI pressure Half-time: 341.00 msec Tricuspid Valve TV Regurg Peak Grad: 54.00mmHg TV Regurg Peak Vasile: 3.66m/sec Updated by Mckenzie Cleaning on 01/05/2017 12:23:58 PM electronically signed on 01/05/2017 12:28:01 PM with status of Final Wall Motion Pham: 1=Normal, 2=Hypokinesis, 3=Akinesis, 4=Dyskinesis, 5=Aneurysmal, 6=Hyperkinetic, X=Not Visualized (Blank)=Missing
[2017-01-05] MEDS ORDERED: amLODIPine 5 MG TABLET PO ONE (12:54)
--- NOTE | 2017-01-05 13:11 | Event Note ---
Date of Encounter: 01/05/17 Time of Encounter: 13:00 - Cardiology Event Note Echo results noted to show EF preserved 65%, normal LV size and function, moderate diastolic dysfunction, moderate MR, moderate to severe calcification of aortic valve with moderate to severe reduced leaflet excursion, recommendations to consider SHAYNA if appropriate. Also, noted to have moderate MR , moderate TR, mild to moderate pulmonic regurgitation, moderate severe pulmonary hypertension. Patient had no NSWMA. Discussed with Dr. Whitaker, helio s /o, re-consult PRN, f/u as outpatient.
[2017-01-05 14:26] LABS: Hepatitis B Core IgM Nonreactive (Nonreactive)
[2017-01-05] MEDS ORDERED: SODIUM CHLORIDE/NAHCO3/KCL/PEG 4,000 ML SOLN.RECON PO ONE (17:00)
--- NOTE | 2017-01-05 18:07 | Internal Med Progress Note ---
Date of Encounter: 01/05/17 Time of Encounter: 10:00 - Assessment and plan (1) Acute on chronic respiratory failure with hypoxia Current Visit: Yes Status: Acute Assessment and plan: Treatment patient as pneumonia with antibiotics. Patient has history of CHF, repeat echo shows moderate diastolic dysfunction. (2) Rwtcz-rf-ezwquaj kidney injury Current Visit: Yes Status: Acute Assessment and plan: Patient has a history of CKD, we will closely monitor renal function. Hold ARB. May need nephrology consult if renal function is getting worse (3) Anemia Current Visit: Yes Status: Acute Assessment and plan: Etiology is undetermined, no signs of active bleeding, guaiac test negative. Anemia workup ordered. We will give transfusion. GI consult appreciated, plan for scopes tomorrow. Qualifiers: Anemia type: unspecified type Qualified Code(s): D64.9 - Anemia, unspecified (4) COPD (chronic obstructive pulmonary disease) Current Visit: Yes Status: Acute Assessment and plan: Patient has a COPD exacerbation. He was placed on antibiotics, steroids, and bronchodilator. 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 On fluid restriction. Careful diuretics because of poor renal function Qualifiers: Congestive heart failure type: unspecified congestive heart failure type Congestive heart failure chronicity: chronic Qualified Code(s): I50.9 - Heart failure, unspecified (6) Elevated troponin Current Visit: Yes Status: Acute Assessment and plan: Denies chest pain. Consider demand ischemia. No further cardiac workup per cardiology. 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 Continue antibiotics. Qualifiers: Pneumonia type: due to methicillin-resistant Staphylococcus aureus (MRSA) Laterality: right Lung location: upper lobe of lung Qualified Code(s): J15.212 - Pneumonia due to Methicillin resistant Staphylococcus aureus (9) CKD (chronic kidney disease) Current Visit: No Status: Chronic Assessment and plan: Closely monitor renal function. Qualifiers: Chronic kidney disease stage: stage 3 (moderate) Qualified Code(s): N18.3 - Chronic kidney disease, stage 3 (moderate) (10) DVT prophylaxis Current Visit: Yes Status: Acute Assessment and plan: EPCD. No anticoagulation because of low H&H and low platelet level - Time Spent With Patient 25 - 35 minutes - Subjective Interval history: Patient is a 86-year-old male admitted for shortness of breath. He was treated as healthcare associated pneumonia. Past medical history is significant for COPD, CK-MB, dementia, diabetes, CVA. Patient was seen and examined. His SOB has improved after treatment. Few wheezing. However patient has significant hemoglobin drop, etiology is undetermined. Guaiac test negative. H&H improved after 2 units PRBCs. GI consult appreciated. Plan for scopes tomorrow. Patient has a high ferritin level, hemachromatosis workup placed by GI doctor. - Constitutional Vitals: Temp Pulse Resp BP Pulse Ox 97.6 F 77 18 177/89 91 L 01/05/17 07:28 01/05/17 07:28 01/05/17 16:20 01/05/17 07:28 01/05/17 16:20 General appearance: Present: cooperative, A&O X 2, mild distress, answers questions appropriately - Head Head exam: Present: atraumatic, normocephalic - Eye Eye exam: Present: PERRL, conjuntiva pink, sclera anicteric Pupils: Present: PERRL - Neck Neck exam general surgery: Present: supple, trachea midline. Absent: lymphadenopathy - Respiratory Respiratory exam: Present: CTAB, wheezes (Wheezes bilaterally). Absent: accessory muscle use, rales, rhonchi - Cardiovascular Cardiovascular exam: Present: RRR, +S1, +S2. Absent: diastolic murmur, gallop, rubs, systolic murmur - GI/Abdominal GI/Abdominal exam: Present: normal bowel sounds, soft, no peritoneal signs. Absent: distended, tenderness - Extremities Exam Extremities exam: Present: warm, radial pulses palpable and symetrical. Absent : calf tenderness, cyanotic, pedal edema - Neurological Exam Neurological exam: Present: CN II-XII intact, oriented X3, no focal deficits. Absent: pronater drift, facial droop, speech deficit - Skin Skin exam: Present: dry, intact Internal Medicine: Result - Labs CBC & Chem 7: 01/05/17 05:38 01/05/17 04:54 Labs: Short CBC 01/05/17 Range/Units 05:38 WBC 11.4 H D (4.3-11.1) K/mcL Hgb 9.0 L D (12.9-16.9) g/dL Hct 27.1 L (37.5-50.1) % Plt Count 71 L (140-400) K/mcL Neutrophils # 10.4 H (1.6-8.9) K/mcL BMP 01/05/17 04:54 Sodium 137 Potassium 4.9 H Chloride 109 Carbon Dioxide 17 L BUN 58 H Creatinine 3.29 H Glucose 167 H Calcium 8.4 L Liver Function 01/05/17 Range/Units 10:12 Total Bilirubin 0.5 (0.2-1.2) mg/dL Direct Bilirubin 0.3 (0.0-0.5) mg/dL AST 32 (5-34) Units/L ALT 36 (0-55) Units/L Alkaline Phosphatase 162 H (38-126) Units/L Albumin 2.6 L (3.5-5.0) g/dL - ABG Interpretation ABG results: ABG ABG pH 7.36 pH Units (7.32-7.45) 01/03/17 21:38 ABG pCO2 39 mmHg (35-45) 01/03/17 21:38 ABG pO2 63 mmHg (85-104) L 01/03/17 21:38 ABG O2 Saturation 91 % (95-98) L 01/03/17 21:38 PT/INR, D-dimer PT 12.8 Seconds (9.4-12.1) H 01/05/17 10:12 - Impressions Impressions Retroperitoneum Ultrasound 01/05/17 15:00 IMPRESSION: 1. Mild increased cortical echogenicity consistent with mild medical renal disease. 2. Mild prominence of the right renal collecting system. 3. Bilateral renal cysts. D/ / 01/05/2017 16:20:18 Marilee Lehman MD / mague Interpreting Provider: Marilee Lehman MD Liver Ultrasound 01/05/17 15:30 IMPRESSION: 1. Nodular hepatic contour can be seen setting of cirrhosis. 2. Trace perihepatic ascites. D/ / Jamar Layton MD / Jamar Layton MD Interpreting Provider: Jamar Layton MD Consult Discharge Plan - Plan Referrals: Alok Kumar MD [Primary Care Provider] - Carter Reyes CNP [Advanced Practice Nurse] - 01/19/17 8:00 am
[2017-01-05] MEDS: Mirtazapine 15 MG TABLET PO SCH (21:48)
[2017-01-06] MEDS ORDERED: *HR* LORazepam 2 MG/ML VIAL IVP ONE (03:34)
[2017-01-06] MEDS: Ipratropium/Albuterol Neb 3 ML IH SCH ×5 (04:17→20:58)
[2017-01-06] MEDS: methylPREDNISolone 125 MG/2 ML VIAL IVP SCH (05:15)
[2017-01-06] MEDS: Nicotine 21 MG PATCH.TD24 TD SCH (09:45)
[2017-01-06] MEDS: Insulin LISPRO 300 UNITS/3 ML VIAL SQ SCH ×4 (09:45→21:02)
[2017-01-06] MEDS: FORMOTEROL FUMARATE IH SCH ×2 (09:45→21:02)
[2017-01-06] MEDS: Cefepime HCl 2,000 MG in D5% in Water (Mini-Bag+) 100 ML IVPB SCH (09:53)
[2017-01-06] MEDS: Budesonide Neb 0.5 MG/2 ML IH SCH (11:47)
[2017-01-06 11:54] LABS: Basophils # 0.1 K/mcL (0.0-0.2); Basophils % 0.3 %; Hematocrit 28.9 % (37.5-50.1); Hemoglobin 9.7 g/dL (12.9-16.9); Immature Granulocytes % 4.8 % (0-4); Lymphocytes # 0.3 K/mcL (0.6-4.6); Lymphocytes % 2.1 %; Mean Corpuscular HGB Conc 33.6 g/dL (31.6-35.5); Mean Corpuscular Hemoglobin 36.5 pg (28.0-33.3); Mean Corpuscular Volume 108.6 fL (83.0-100.0); Mean Platelet Volume 12.6 fL (9.4-12.4); Monocytes # 0.5 K/mcL (0.0-1.3); Monocytes % 3.1 %; Nucleated Red Blood Cells 0.1 /100 WBC (0); Red Blood Count 2.66 M/mcL (4.19-5.50); Segmented Neutrophils % 89.7 %
[2017-01-06 11:55] LABS: Neutrophils # 13.7 K/mcL (1.6-8.9); Platelet Count 85 K/mcL (140-400)
[2017-01-06 12:10] LABS: Calcium 8.8 mg/dL (8.6-10.8); Potassium 4.4 mEq/L (3.5-4.5)
[2017-01-06] MEDS ORDERED: *HR* Propofol 200 MG/20 ML VIAL IVP ONE (12:57)
[2017-01-06] MEDS ORDERED: Lidocaine -MPF 2% 5 ML VIAL INFILT ONE (12:57)
--- NOTE | 2017-01-06 13:51 | Anesthesia Evaluation PreOp ---
Date of Encounter: 01/06/17 Time of Encounter: 13:50 - Past History Planned Operation: Double Endo Cardiac History: HTN, Hyperlipidemia, Other (Anemia of chronic disease) Pulmonary History: COPD DOOR CUTTER History: Other (Dementia) Other Medical History: Renal (CKD), Diabetes Type II Anesthesia History: No Prior Anesthetic Complications Alcohol Use: none Drug use: none Medications and Allergies Atenolol [Tenormin] 50 mg PO DAILY 08/20/15 [History] Citalopram [CeleXA] 20 mg PO DAILY 08/20/15 [History] Losartan [Cozaar] 50 mg PO DAILY 08/20/15 [History] Mirtazapine [Remeron] 15 mg PO HS 08/20/15 [History] Omeprazole [PriLOSEC] 20 mg PO DAILY 08/20/15 [History] Albuterol Neb [Proventil Neb] 3 ml IH Q6H PRN 04/06/16 [History] Albuterol Sulfate [Proair Hfa] 2 puff IH Q4H PRN 04/06/16 [History] Formoterol Fumarate [Perforomist] 2 ml IH BID 04/06/16 [History] Oxygen 2 l NS AD 04/06/16 [History] Amlodipine Besylate 2.5 mg PO DAILY 01/03/17 [History] Aspirin Enteric Coated [Aspirin EC] 81 mg PO DAILY 01/03/17 [History] Budesonide Neb [Pulmicort Neb] 1 mg IH DAILY 01/03/17 [History] Docusate Sodium [Colace] 100 mg PO BID 01/03/17 [History] Hydrocodone/Acetaminophen [[place] 5-325 Tablet] 1 tab PO Q6H PRN 01/03/17 [ History] TraZODone 25 mg PO HS PRN 01/03/17 [History] Allergies Penicillins Allergy (Verified 08/20/15 13:30) Swelling of Lip/Tongue/Throat - Meds/Allergy Pre-op Review Medications Reviewed: Yes Allergies Reviewed: Yes Beta Blockers on Current Med List: Yes Anesthesia Results - Labs 01/06/17 11:24 01/06/17 11:24 - Imaging EKG: report reviewed (SR Rt BBB) Additional studies: ECHO EF 65%, moderate diastolic dysfunction Anesthesia Exam Vital Signs/O2 Sat/Glucose, Most Current Temp Pulse Resp BP Pulse Ox 01/06/17 13:38 98.2 F 70 18 168/75 93 L 01/06/17 12:05 72 18 185/88 97 Height: 5'9 Weight: 164 lbs NPO (# of Hours): MN - HEENT Pupil (Motor): Pupils equal, EOMI Mallampati: III Denture Type: Upper: Complete, Lower: Complete Oral Opening: Less than or equal to 3 - DOOR CUTTER LOC: Oriented DOOR CUTTER Motor: Normal RUE, Normal LUE, Normal RLE, Normal LLE, Normal Face DOOR CUTTER Sensory: Normal: RUE, LUE, RLE, LLE, Face - Cardiac Rhythm: Regular Murmur: None JVD: No Carotid Bruit: No - Pulmonary Breath Sounds: bilateral Clear Respiratory Effort: Symmetrical Anesthesia Assess/Plan ASA Score: 3 (COPD CKD DM) Modified [place] Scale for Level of Consciousness: Cooperative, oriented, and tranquil Anesthetic Plan: MAC Monitoring Plan: Standard Monitors Recovery Plan: Other (Discussed MAC,agrees to proceed)
[2017-01-06] MEDS ORDERED: 0.9 % Sodium Chloride 500 ML IVC SCH (14:00)
--- NOTE | 2017-01-06 14:36 | Anesthesia Evaluation Post Op ---
Date of Encounter: 01/06/17 Time of Encounter: 14:37 - Vital Signs Vital Signs: vss - Lungs Lungs: Wheezes (duoneb ordered.) - Airway Airway: Non-obstructed - Cardiovascular Baseline Rhythm - Mental Status Mental Status: Alert & Oriented, Answers Appropriately - Pain Pain Scale used: JohnsonGene (Faces) - Nausea Vomiting Nausea Vomiting: Not Present - Discharge PostOp Status: Transfer Patient to floor
[2017-01-06] MEDS ORDERED: Albuterol 2.5 MG/3 ML NEBULIZER ONE (14:38)
--- NOTE | 2017-01-06 15:09 | Internal Med Progress Note ---
Date of Encounter: 01/06/17 Time of Encounter: 10:00 - Assessment and plan (1) Acute on chronic respiratory failure with hypoxia Current Visit: Yes Status: Acute Assessment and plan: Treatment patient as pneumonia with antibiotics. Patient has history of CHF, repeat echo shows moderate diastolic dysfunction. (2) Ydhbp-ge-[id number] kidney injury Current Visit: Yes Status: Acute Assessment and plan: Patient has a history of CKD, we will closely monitor renal function. Hold ARB. Improving renal function. (3) Anemia Current Visit: Yes Status: Acute Assessment and plan: Etiology is undetermined, no signs of active bleeding, guaiac test negative. Anemia workup shows most likely anemia due to chronic renal disease. EGD and colonoscope done, unremarkable. Qualifiers: Anemia type: other cause Other causes of anemia: chronic disease, kidney Qualified Code(s): N18.9 - Chronic kidney disease, unspecified; D63.1 - Anemia in chronic kidney disease (4) COPD (chronic obstructive pulmonary disease) Current Visit: Yes Status: Acute Assessment and plan: Patient has a COPD exacerbation. He was placed on antibiotics, steroids, and bronchodilator. 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 On fluid restriction. Careful diuretics because of poor renal function Qualifiers: Congestive heart failure type: unspecified congestive heart failure type Congestive heart failure chronicity: chronic Qualified Code(s): I50.9 - Heart failure, unspecified (6) Elevated troponin Current Visit: Yes Status: Acute Assessment and plan: Denies chest pain. Consider demand ischemia. No further cardiac workup per cardiology. 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 Continue antibiotics. Qualifiers: Pneumonia type: due to methicillin-resistant Staphylococcus aureus (MRSA) Laterality: right Lung location: upper lobe of lung Qualified Code(s): J15.212 - Pneumonia due to Methicillin resistant Staphylococcus aureus (9) CKD (chronic kidney disease) Current Visit: No Status: Chronic Assessment and plan: Closely monitor renal function. Qualifiers: Chronic kidney disease stage: stage 3 (moderate) Qualified Code(s): N18.3 - Chronic kidney disease, stage 3 (moderate) (10) DVT prophylaxis Current Visit: Yes Status: Acute Assessment and plan: EPCD. No anticoagulation because of low H&H and low platelet level (11) Cirrhosis Current Visit: Yes Status: Acute Assessment and plan: Etiology undetermined. GI consult on case. Qualifiers: Hepatic cirrhosis type: unspecified hepatic cirrhosis Ascites presence: without ascites Qualified Code(s): K74.60 - Unspecified cirrhosis of liver - Time Spent With Patient 25 - 35 minutes - Subjective Interval history: Patient is a 86-year-old male admitted for shortness of breath. He was treated as healthcare associated pneumonia. Past medical history is significant for COPD, CK-MB, dementia, diabetes, CVA. Patient was seen and examined. His SOB has improved after treatment. No wheezing. H/H stable after transfusion. Pt had EGD and colonoscope today, results unremarkable. Will continue Abx and steroid for COPD exacerbation. Taper down steroid. - Constitutional Vitals: Temp Pulse Resp BP Pulse Ox 98.2 F 70 18 168/75 93 L 01/06/17 13:38 01/06/17 13:38 01/06/17 13:38 01/06/17 13:38 01/06/17 13:38 General appearance: Present: cooperative, A&O X 2, mild distress, answers questions appropriately - Head Head exam: Present: atraumatic, normocephalic - Eye Eye exam: Present: PERRL, conjuntiva pink, sclera anicteric Pupils: Present: PERRL - Neck Neck exam general surgery: Present: supple, trachea midline. Absent: lymphadenopathy - Respiratory Respiratory exam: Present: CTAB. Absent: accessory muscle use, rales, rhonchi, wheezes - Cardiovascular Cardiovascular exam: Present: RRR, +S1, +S2. Absent: diastolic murmur, gallop, rubs, systolic murmur - GI/Abdominal GI/Abdominal exam: Present: normal bowel sounds, soft, no peritoneal signs. Absent: distended, tenderness - Extremities Exam Extremities exam: Present: warm, radial pulses palpable and symetrical. Absent : calf tenderness, cyanotic, pedal edema - Neurological Exam Neurological exam: Present: CN II-XII intact, oriented X3, no focal deficits. Absent: pronater drift, facial droop, speech deficit - Skin Skin exam: Present: dry, intact Internal Medicine: Result - Labs CBC & Chem 7: 01/06/17 11:24 01/06/17 11:24 Labs: Short CBC 01/06/17 Range/Units 11:24 WBC 15.3 H (4.3-11.1) K/mcL Hgb 9.7 L (12.9-16.9) g/dL Hct 28.9 L (37.5-50.1) % Plt Count 85 L (140-400) K/mcL Neutrophils # 13.7 H (1.6-8.9) K/mcL BMP 01/06/17 11:24 Sodium 136 Potassium 4.4 Chloride 107 Carbon Dioxide 19 BUN 59 H Creatinine 3.09 H Glucose 152 H Calcium 8.8 - ABG Interpretation ABG results: ABG ABG pH 7.36 pH Units (7.32-7.45) 01/03/17 21:38 ABG pCO2 39 mmHg (35-45) 01/03/17 21:38 ABG pO2 63 mmHg (85-104) L 01/03/17 21:38 ABG O2 Saturation 91 % (95-98) L 01/03/17 21:38 PT/INR, D-dimer PT 12.8 Seconds (9.4-12.1) H 01/05/17 10:12 - Impressions Impressions Retroperitoneum Ultrasound 01/05/17 15:00 IMPRESSION: 1. Mild increased cortical echogenicity consistent with mild medical renal disease. 2. Mild prominence of the right renal collecting system. 3. Bilateral renal cysts. D/ / 01/05/2017 16:20:18 Marilee Lehman MD / mague Interpreting Provider: Marilee Lehman MD Liver Ultrasound 01/05/17 15:30 IMPRESSION: 1. Nodular hepatic contour can be seen setting of cirrhosis. 2. Trace perihepatic ascites. D/ / Jamar Layton MD / Jamar Layton MD Interpreting Provider: Jamar Layton MD Head CT 01/05/17 19:56 IMPRESSION: No acute intracranial abnormality. D/ / Rachelle Alatorre MD / Rachelle Alatorre MD Interpreting Provider: Rachelle Alatorre MD Consult Discharge Plan - Plan Referrals: Alok Kumar MD [Primary Care Provider] - Carter Reyes CNP [Advanced Practice Nurse] - 01/19/17 8:00 am
[2017-01-06] MEDS: amLODIPine 5 MG TABLET PO SCH (16:30)
[2017-01-06] MEDS: MethylPREDNISolone 40 MG/ML VIAL IVP SCH (18:49)
[2017-01-06] MEDS: Mirtazapine 15 MG TABLET PO SCH (21:00)
[2017-01-07] MEDS: Ipratropium/Albuterol Neb 3 ML IH SCH ×5 (00:27→15:54)
[2017-01-07] MEDS: MethylPREDNISolone 40 MG/ML VIAL IVP SCH (05:18)
[2017-01-07 05:58] LABS: Potassium 4.4 mEq/L (3.5-4.5)
[2017-01-07 06:03] LABS: Hematocrit 27.2 % (37.5-50.1); Hemoglobin 9.2 g/dL (12.9-16.9); Mean Corpuscular HGB Conc 33.8 g/dL (31.6-35.5); Segmented Neutrophils % 84.6 %
[2017-01-07 06:06] LABS: Basophils # 0.1 K/mcL (0.0-0.2); Basophils % 0.4 %; Immature Granulocytes % 4.9 % (0-4); Immature Platelets 19.9 % (1.1-6.1); Lymphocytes # 0.5 K/mcL (0.6-4.6); Lymphocytes % 4.2 %; Mean Corpuscular Hemoglobin 36.9 pg (28.0-33.3); Mean Corpuscular Volume 109.2 fL (83.0-100.0); Mean Platelet Volume 12.9 fL (9.4-12.4); Monocytes # 0.7 K/mcL (0.0-1.3); Monocytes % 5.9 %; Red Blood Count 2.49 M/mcL (4.19-5.50); Red Cell Distribution Width 20.3 % (11.5-14.5)
[2017-01-07 06:08] LABS: Neutrophils # 10.2 K/mcL (1.6-8.9); Platelet Count 96 K/mcL (140-400)
[2017-01-07 07:19] LABS: Platelet Estimate Decreased (Normal)
[2017-01-07 07:20] LABS: Anisocytosis 1+ (Not Present); Macrocytosis Present (Not Present)
[2017-01-07] MEDS: Budesonide Neb 0.5 MG/2 ML IH SCH (07:36)
[2017-01-07 07:45] LABS: AFP Tumor Marker Non-Pregnant 1 ng/mL (0-9); Alpha-1-Antitrypsin 212 mg/dL (90-200)
[2017-01-07] MEDS: Insulin LISPRO 300 UNITS/3 ML VIAL SQ SCH ×2 (08:10→12:21)
[2017-01-07] MEDS: FORMOTEROL FUMARATE IH SCH (08:12)
[2017-01-07] MEDS: Cefepime HCl 2,000 MG in D5% in Water (Mini-Bag+) 100 ML IVPB SCH (08:12)
[2017-01-07] MEDS: amLODIPine 5 MG TABLET PO SCH (08:12)
[2017-01-07] MEDS: Nicotine 21 MG PATCH.TD24 TD SCH (08:13)
[2017-01-07 11:13] VITALS: BP 155/73
[2017-01-07 12:40] LABS: ANA IgG by ELISA NONE DETECTED (None Detected); F-Actin (sm muscle) Ab IgG 58 Units (0-19); Myeloperoxidase Ab 2 AU/mL (0-19); Serine Protease-3 Antibody 1 AU/mL (0-19)
[2017-01-07] MEDS ORDERED: predniSONE 20 MG TABLET PO SCH (14:00)
[2017-01-07] MEDS ORDERED: levoFLOXacin 500 MG TABLET PO ONE (14:00)
--- NOTE | 2017-01-07 14:26 | Discharge Summary ---
Date of Encounter: 01/07/17 Time of Encounter: 12:00 - Discharge Diagnosis (1) Acute on chronic respiratory failure with hypoxia Priority: Primary Status: Acute (2) [id number] kidney injury Priority: Primary Status: Acute (3) Anemia Priority: Primary Status: Acute Qualifiers: Anemia type: other cause Other causes of anemia: chronic disease, kidney Qualified Code(s): N18.9 - Chronic kidney disease, unspecified; D63.1 - Anemia in chronic kidney disease (4) COPD (chronic obstructive pulmonary disease) Priority: Primary Status: Acute Qualifiers: COPD type: chronic bronchitis Chronic bronchitis type: simple Qualified Code(s): J41.0 - Simple chronic bronchitis (5) Congestive heart failure Priority: Secondary Status: Acute Qualifiers: Congestive heart failure type: unspecified congestive heart failure type Congestive heart failure chronicity: chronic Qualified Code(s): I50.9 - Heart failure, unspecified (6) Elevated troponin Priority: Secondary Status: Acute (7) Diabetes Priority: Secondary Status: Chronic Qualifiers: Diabetes mellitus type: type 2 Diabetes mellitus complication status: with kidney complications Diabetes mellitus complication detail: with chronic kidney disease Diabetes mellitus oil heaterman insulin use: without oil heaterman use Chronic kidney disease stage: stage 4 (severe) Qualified Code(s): E11.22 - Type 2 diabetes mellitus with diabetic chronic kidney disease; N18.4 - Chronic kidney disease, stage 4 (severe) (8) Pneumonia Priority: Primary Status: Suspected Qualifiers: Pneumonia type: due to methicillin-resistant Staphylococcus aureus (MRSA) Laterality: right Lung location: upper lobe of lung Qualified Code(s): J15.212 - Pneumonia due to Methicillin resistant Staphylococcus aureus (9) CKD (chronic kidney disease) Priority: Secondary Status: Chronic Qualifiers: Chronic kidney disease stage: stage 3 (moderate) Qualified Code(s): N18.3 - Chronic kidney disease, stage 3 (moderate) (10) DVT prophylaxis Priority: Secondary Status: Acute (11) Cirrhosis Priority: Primary Status: Acute Qualifiers: Hepatic cirrhosis type: unspecified hepatic cirrhosis Ascites presence: without ascites Qualified Code(s): K74.60 - Unspecified cirrhosis of liver - Discharge Medications Prescriptions: Citalopram [CeleXA] 20 mg PO DAILY #7 tablet Levofloxacin [Levaquin] 500 mg PO Q48H #5 tablet Mirtazapine [Remeron] 15 mg PO HS #7 tablet PredniSONE 40 mg PO DAILY #20 tablet Home Medications: Atenolol [Tenormin] 50 mg PO DAILY 08/20/15 [History] Losartan [Cozaar] 50 mg PO DAILY 08/20/15 [History] Mirtazapine [Remeron] 15 mg PO HS 08/20/15 [History] Omeprazole [PriLOSEC] 20 mg PO DAILY 08/20/15 [History] Albuterol Neb [Proventil Neb] 3 ml IH Q6H PRN 04/06/16 [History] Albuterol Sulfate [Proair Hfa] 2 puff IH Q4H PRN 04/06/16 [History] Formoterol Fumarate [Perforomist] 2 ml IH BID 04/06/16 [History] Oxygen 2 l NS AD 04/06/16 [History] Amlodipine Besylate 2.5 mg PO DAILY 01/03/17 [History] Aspirin Enteric Coated [Aspirin EC] 81 mg PO DAILY 01/03/17 [History] Budesonide Neb [Pulmicort Neb] 1 mg IH DAILY 01/03/17 [History] Docusate Sodium [Colace] 100 mg PO BID 01/03/17 [History] Hydrocodone/Acetaminophen [[place] 5-325 Tablet] 1 tab PO Q6H PRN 01/03/17 [ History] TraZODone 25 mg PO HS PRN 01/03/17 [History] Citalopram [CeleXA] 20 mg PO DAILY #7 tablet 01/07/17 [Rx] Levofloxacin [Levaquin] 500 mg PO Q48H #5 tablet 01/07/17 [Rx] Mirtazapine [Remeron] 15 mg PO HS #7 tablet 01/07/17 [Rx] PredniSONE 40 mg PO DAILY #20 tablet 01/07/17 [Rx] Allergies/Adverse Reactions: Allergies Penicillins Allergy (Verified 08/20/15 13:30) Swelling of Lip/Tongue/Throat Procedures/tests Complete & Pending: Procedures Performed prior 72 hours Category Date Time Status CT head/brain wo con [CT] Stat Cat Scan 01/05/17 19:56 Completed US liver [US] Routine Exams 01/05/17 15:30 Completed US retroperitoneal comp [US] Routine Exams 01/05/17 15:00 Completed EV echocardiogram Routine Y 01/05/17 10:00 Completed - Notes to Outpatient Provider 1. Continue Levaquin by mouth for 10 days. 2. Prednisone tapered down: 40 mg by mouth daily for 3 days, 20 mg daily for 3days, 10 mg daily for 3 days Date of admission: 01/03/17 22:24 Primary care physician: Alok Kumar MD Consults: 01/04/17 09:57 Consult to [employer] Ad[employer] Developer [CONS] Routine Reason for SW Consult: Back to ECF 01/04/17 13:00 Consult to Cardiology [CONS] Routine Comment: Consulting Provider: [facility] [place] Reason for Consult: elevated troponin, SOB Call Completed: Yes 01/04/17 19:41 Consult to Gastroenterology [CONS] Routine Consulting Provider: [facility] [place] Reason for Consult: Anemia for unknown reason. Call Completed: No Discharging clinician: Lennox Maldonado Anticipated date of discharge: 01/07/17 - Patient Status Disposition: Transfer SNF Condition: Fair Functional capacity at discharge: uses cane/walker Overall status at discharge: patient is back to baseline - Discharge Instructions Follow Up With: Alok Kumar MD [Primary Care Provider] - Carter Reyes CNP [Advanced Practice Nurse] - 01/19/17 8:00 am Althea Mccloud MD [Partnered Physician] - 01/21/17 - Diet and Activity Activity: as per physical therapy, wear oxygen at all times Diet: diabetic diet, other (Renal diet) Interval History: Mr. Saul is a 86 year old male with history of COPD, diabetes, CVA, hypertension and hyperlipidemia presented to the ER from long term with shortness of breath and hypoxia that began today. Patient is on chronic home oxygen at 2 L/m. He resides at a long term and appears to be having underlying dementia. He is not able to provide much history. History has been obtained through review of ED records. Here, the patient was having severe wheezing and was hypoxic. He was recently given bronchodilator and nebulizer treatments and IV steroids with improvement in his symptoms. He presently denies any chest pain. He feels better now and does not report any cough or sputum production. ED records report that he does have intermittent cough with scant sputum production. No palpitations. Hospital course: Mr. Saul is a 86 year old male admitted for COPD exacerbation and pneumonia. he was placed on antibiotic, steroid, bronchodilator. Patient has a hemoglobin drop, GI consult was called and EGD and colonoscopy has been done. Result is unremarkable except for small polyps. Patient has elevated troponin, cardiology consult has been called and saw patient. No further workup recommended. After treatment patient's symptoms have improved, steroid has been tapered down. Patient will discharge to ECF for further management. I saw and examined patient today. He is awake alert, in no acute respiratory distress, lungs are clear on exam, vitals are stable. Oxygen saturation 97% on 2 L nasal cannula, which is about his baseline. The patient will discharge to ECF with the by mouth antibiotic and taper down steroids. Time spent discussing smoking cessation with patient: 3 to 10 minutes - Time Spent with Patient Total time spent providing and/or coordinating discharge services: 40 minutes Greater than 30 minutes - Constitutional Vitals: Temp Pulse Resp BP Pulse Ox 99 F 74 18 155/73 97 01/07/17 11:12 01/07/17 11:12 01/07/17 11:54 01/07/17 11:12 01/07/17 11:54 General appearance: Present: cooperative, A&O X 2, mild distress, answers questions appropriately - Head Head exam: Present: atraumatic, normocephalic - Eye Eye exam: Present: PERRL, conjuntiva pink, sclera anicteric Pupils: Present: PERRL - Neck Neck exam general surgery: Present: supple, trachea midline. Absent: lymphadenopathy - Respiratory Respiratory exam: Present: CTAB. Absent: accessory muscle use, rales, rhonchi, wheezes - Cardiovascular Cardiovascular exam: Present: RRR, +S1, +S2. Absent: diastolic murmur, gallop, rubs, systolic murmur - GI/Abdominal GI/Abdominal exam: Present: normal bowel sounds, soft, no peritoneal signs. Absent: distended, tenderness - Extremities Exam Extremities exam: Present: warm, radial pulses palpable and symetrical. Absent : calf tenderness, cyanotic, pedal edema - Neurological Exam Neurological exam: Present: CN II-XII intact, oriented X3, no focal deficits. Absent: pronater drift, facial droop, speech deficit - Skin Skin exam: Present: dry, intact - VTE Documentation of Mechanical Device: Intermittent pneumatic compression device
--- NOTE | 2017-01-07 14:42 | Physician Discharge Referral ---
ExtendedCare Referral Info Transfer To: F Provider in Charge after Transfer: Other - Diagnosis (1) Acute on chronic respiratory failure with hypoxia Status: Acute (2) [id number] kidney injury Status: Acute (3) Anemia Status: Acute (4) COPD (chronic obstructive pulmonary disease) Status: Acute (5) Congestive heart failure Status: Acute (6) Elevated troponin Status: Acute (7) Diabetes Status: Chronic (8) Pneumonia Status: Suspected (9) CKD (chronic kidney disease) Status: Chronic (10) DVT prophylaxis Status: Acute (11) Cirrhosis Status: Acute - Transfer Medications Prescriptions: Citalopram [CeleXA] 20 mg PO DAILY #7 tablet Levofloxacin [Levaquin] 500 mg PO Q48H #5 tablet Mirtazapine [Remeron] 15 mg PO HS #7 tablet PredniSONE 40 mg PO DAILY #20 tablet Home Medications: Atenolol [Tenormin] 50 mg PO DAILY 08/20/15 [History] Losartan [Cozaar] 50 mg PO DAILY 08/20/15 [History] Mirtazapine [Remeron] 15 mg PO HS 08/20/15 [History] Omeprazole [PriLOSEC] 20 mg PO DAILY 08/20/15 [History] Albuterol Neb [Proventil Neb] 3 ml IH Q6H PRN 04/06/16 [History] Albuterol Sulfate [Proair Hfa] 2 puff IH Q4H PRN 04/06/16 [History] Formoterol Fumarate [Perforomist] 2 ml IH BID 04/06/16 [History] Oxygen 2 l NS AD 04/06/16 [History] Amlodipine Besylate 2.5 mg PO DAILY 01/03/17 [History] Aspirin Enteric Coated [Aspirin EC] 81 mg PO DAILY 01/03/17 [History] Budesonide Neb [Pulmicort Neb] 1 mg IH DAILY 01/03/17 [History] Docusate Sodium [Colace] 100 mg PO BID 01/03/17 [History] Hydrocodone/Acetaminophen [[place] 5-325 Tablet] 1 tab PO Q6H PRN 01/03/17 [ History] TraZODone 25 mg PO HS PRN 01/03/17 [History] Citalopram [CeleXA] 20 mg PO DAILY #7 tablet 01/07/17 [Rx] Levofloxacin [Levaquin] 500 mg PO Q48H #5 tablet 01/07/17 [Rx] Mirtazapine [Remeron] 15 mg PO HS #7 tablet 01/07/17 [Rx] PredniSONE 40 mg PO DAILY #20 tablet 01/07/17 [Rx] Allergies/Adverse Reactions: Allergies Penicillins Allergy (Verified 08/20/15 13:30) Swelling of Lip/Tongue/Throat - Respiratory Orders Oxygen / L per min (2-3) Smoking Cessation: Smoking cessation has been advised. For more information, call the [place] Tobacco Quit Line at 7-470-JKPD-NOW. - Advance Directives Code Status: Full Code - Rehabiliation Orders Rehab Orders: Evaluation for Physical Therapy, Evaluation for Occupational Therapy - Diet Orders No Concentrated Sweets, Renal CERTIFICATION: I certify that the transfer of the above named patient to an Extended Care Facility is necessary for the continuing treatment of the diagnosis listed. The above information is true and accurate reflection of patient's current condition. Confidential - Redisclosure prohibited without a patient's written consent.
[2017-01-07 15:27] LABS: Ceruloplasmin 44 mg/dL (17-54)
[2017-01-07] MEDS ORDERED: Levofloxacin 750 MG/150 ML 750 MG/150 ML BAG IVPB ONE (18:00)
[2017-01-08] MEDS ORDERED: levoFLOXacin 500 MG TABLET PO SCH (09:00)
[2017-01-09 00:48] LABS: C282Y Hemochromatosis Mutation NEGATIVE; H63D Hemochromatosis Mutation NEGATIVE; HFE Specimen Type WHOLE BLOOD; S65C Hemochromatosis Mutation NEGATIVE
[2017-01-09] MEDS ORDERED: levoFLOXacin 500 MG TABLET PO SCH (09:00)
[2017-01-09] MEDS ORDERED: Levofloxacin 500 MG/100 ML 500 MG/100 ML BAG IVPB SCH (18:00)
== END 2017-01-07 19:00 | DRG 190 ==
LOC: 2NENU 19:24 → EMEROO 19:24 → SUATTDRO 22:24 → 2NENU 22:53
PROVIDERS: ADMIT Family Medicine; ATTEND Internal Medicine
PROC: ENDOEBX (2017-01-06 14:00)